=== PATIENT | female | born 1960 | race Caucasian/White ===

== ENCOUNTER 2018-12-28 09:08 | Inpatient (IN) | payer OTHER ==
[~2018-12-28] VITALS: Ht 157.5 cm; Wt 85.5 kg
[2018-12-28] VITALS (12 sets, daily range): BP systolic 11–121; BP diastolic 56–65; PULSE 84–102; RESP 19–20; Ht 157.5 cm; Wt 85.5 kg
[2018-12-28] MEDS ORDERED: ONDANSETRON 4 MG INJ IV STA (10:09)
[2018-12-28] MEDS ORDERED: SODIUM POLYSTYRENE 15 GM KIT (POWDER + SORBITOL) PO STA (10:37)
[2018-12-28] MEDS ORDERED: CA CHLORIDE 10% 10 ML SYRINGE IV STA (10:37)
[2018-12-28] MEDS ORDERED: ALBUTEROL 0.5% (NEB) 2.5 MG/0.5 ML AMP INH STA (10:37)
[2018-12-28] MEDS ORDERED: NA BICARBONATE 8.4% 50 ML SYG IV STA (10:37)
[2018-12-28] MEDS ORDERED: INSULIN REGULAR, HUMAN 100 UNIT/1 ML 3ML VIAL IVP STA (10:37)
[2018-12-28] MEDS ORDERED: ASPI-817 PO (10:42)
[2018-12-28] MEDS ORDERED: ACAR50TA PO ×2 (10:42→11:09)
[2018-12-28] MEDS ORDERED: AMLO-147 PO (10:42)
[2018-12-28] MEDS ORDERED: ATOR20TA38 PO (10:43)
[2018-12-28] MEDS ORDERED: ERGO500013 PO (10:44)
[2018-12-28] MEDS ORDERED: FAMO20TA18 PO (10:44)
[2018-12-28] MEDS ORDERED: FENO145T37 PO (10:45)
[2018-12-28] MEDS ORDERED: LANT3I SC (10:46)
[2018-12-28] MEDS ORDERED: MECL-77 PO (10:59)
[2018-12-28] MEDS ORDERED: CLON-379 PO (10:59)
[2018-12-28] MEDS ORDERED: DEXTROSE 50% 50 ML SYRINGE IV PRN ×3 (11:00→13:00)
[2018-12-28] MEDS ORDERED: ONDA8TAB9 PO (11:00)
[2018-12-28] MEDS ORDERED: RANI150T5 PO (11:00)
[2018-12-28] MEDS ORDERED: LEVO75TA5 PO (11:00)
[2018-12-28] MEDS ORDERED: ACETAMINOPHEN 325 MG TAB PO PRN (11:00)
[2018-12-28] MEDS ORDERED: ONDANSETRON 4 MG INJ IV PRN ×2 (11:00→11:30)
[2018-12-28] MEDS ORDERED: METF850T13 PO (11:01)
[2018-12-28] MEDS ORDERED: PRAV40TA76 PO (11:01)
[2018-12-28] MEDS ORDERED: ISOS30TA67 PO (11:02)
[2018-12-28] MEDS ORDERED: LOSA1TAB25 PO (11:03)
[2018-12-28] MEDS ORDERED: PANT40TA4 PO (11:03)
[2018-12-28] MEDS ORDERED: OXYB10TA6 PO (11:04)
[2018-12-28] MEDS ORDERED: BUDE6HFA INHALATION (11:05)
[2018-12-28] MEDS ORDERED: INSU100I12 SQ (11:05)
[2018-12-28] MEDS ORDERED: INSU200I4 SQ (11:06)
[2018-12-28] MEDS ORDERED: FOLI-49 PO (11:11)
[2018-12-28] MEDS ORDERED: METO-336 PO (11:14)
[2018-12-28] MEDS ORDERED: RANO500T2 PO (11:20)
[2018-12-28] MEDS ORDERED: SOD CHLORIDE 0.9% 1,000 ML IV SCH (11:30)
[2018-12-28] MEDS ORDERED: MECLIZINE 25 MG TAB PO PRN (11:30)
[2018-12-28] MEDS ORDERED: MECLIZINE 12.5 MG TAB PO PRN (11:30)
--- NOTE | 2018-12-28 11:31 | ERD ---
ER Documentation Chief Complaint Chief Complaint DIZZINESS AND VOMITING TODAY HPI Patient is a 58-year-old female who presents with hypertension, diabetes, and high cholesterol. The patient presented for vomiting and weakness. Her symptoms started on Thursday. She was admitted to [facility] last week. She had a stress test at that time which was negative. She reports chest pain and dizziness. She felt like her symptoms were worsening yesterday. Upon review of old medical records this is the patient's first visit to the emergency department. Her primary doctor is Dr. Brooks. ROS All systems reviewed and are negative except as per history of present illness. Medications Home Meds Reported Medications Ranolazine* (Ranexa*) 500 Mg Tab.sr.12h, 500 MG PO Q12, TAB 12/28/18 Metoprolol Succinate* (Toprol XL*) 100 Mg Tab.sr.24h, 100 MG PO BID, #30 TAB 12/28/18 Folic Acid* (Folic Acid*) 1 Mg Tablet, 1 MG PO DAILY, TAB 12/28/18 Acarbose* (Precose*) 50 Mg Tablet, 50 MG PO WITH MEALS, TAB 12/28/18 Insulin Degludec (Tresiba Flextouch U-200) 200 Unit/1 Ml Insuln.pen, 0 SQ QHS 50-100 UNITS NEEDED 12/28/18 Insulin Lispro (Humalog Kwikpen U-100) 100 Unit/1 Ml Insuln.pen, 16 UNIT SQ WITH MEALS, EA 12/28/18 Budesonide-Formoterol Fumarate* (Symbicort*) 160-4.5 Hfa.aer.ad, 2 PUFF INHALATION BID, #1 EACH 12/28/18 Oxybutynin Chloride* (Ditropan* XL) 10 Mg Tab.er.24, 10 MG PO DAILY, TAB.SA 12/28/18 Losartan-Hydrochlorothiazide (Losartan-HCTZ) 100-25 Mg Tab, 1 TAB PO DAILY, TAB 12/28/18 Pantoprazole* (Pantoprazole*) 40 Mg Tablet.dr, 40 MG PO AC BREAKFAST, TAB 12/28/18 Isosorbide Mononitrate* (Isosorbide Mononitrate*) 30 Mg Tab.er.24h, 30 MG PO DAILY, TAB 12/28/18 Pravastatin Sodium* (Pravastatin Sodium*) 40 Mg Tablet, 40 MG PO HS, TAB 12/28/18 Metformin Hcl* (Metformin Hcl*) 850 Mg Tablet, 850 MG PO WITH BREAKFAST DINNE, #60 TAB 12/28/18 Ondansetron Hcl* (Zofran*) 8 Mg Tablet, 8 MG PO Q12H PRN for NAUSEA AND OR VOMITING, TAB 12/28/18 Ranitidine Hcl* (Ranitidine Hcl*) 150 Mg Tablet, 150 MG PO HS, #30 TAB 12/28/18 Levothyroxine Sodium* (Levothyroxine Sodium*) 75 Mcg Tablet, 75 MCG PO BEFORE BREAKFAST, #30 TAB 12/28/18 Meclizine Hcl* (Meclizine Hcl*) 25 Mg Tablet, 25 MG PO BID PRN for DIZZINESS, TAB 12/28/18 Clonidine Hcl* (Clonidine Hcl*) 0.1 Mg Tab, 0.1 MG PO Q8 PRN for NEEDED, TAB 12/28/18 Fenofibrate Nanocrystallized* (Fenofibrate*) 145 Mg Tablet, 145 MG PO DAILY, TAB 12/28/18 Famotidine* (Famotidine*) 20 Mg Tablet, 20 MG PO DAILY, #30 TAB 12/28/18 Aspirin* (Aspirin* EC) 81 Mg Tablet.dr, 81 MG PO DAILY, TAB 12/28/18 Amlodipine Besylate* (Amlodipine Besylate*) 10 Mg Tablet, 10 MG PO DAILY, #30 TAB 12/28/18 Discontinued Reported Medications Insulin Glargine* (Lantus*) 100 Unit/Ml Soln, 12 UNIT SC DAILY, #1 VIAL 12/28/18 Ergocalciferol (Vitamin D2) (VITAMIN D2) 50,000 Unit Capsule, 36895 UNIT PO Q 14D, CAP 12/28/18 Atorvastatin Calcium* (Atorvastatin Calcium*) 20 Mg Tablet, 20 MG PO QHS, #30 TAB 12/28/18 Acarbose* (Precose*) 50 Mg Tablet, 50 MG PO WITH MEALS, TAB 12/28/18 Allergies Allergies: Coded Allergies: amoxicillin (Unverified Allergy, Unknown, 12/28/18) PMhx/Soc History of Surgery: Yes (hernia, gallbladder, eye surgeries) Hx Cardiac Disorders: Yes (hypertension; diabetes mellitus; hypercholesterolemia) Hx Miscellaneous Medical Probl: Yes Hx Alcohol Use: No Hx Substance Use: No Hx Tobacco Use: No Smoking Status: Never smoker FmHx Family History: diabetes Physical Exam Vitals Vital Signs Date Temp Pulse Resp B/P (MAP) Pulse Ox O2 O2 Flow FiO2 Time Delivery Rate 12/28/18 82 23 96 Nasal 2.0 11:01 Cannula 12/28/18 Nasal 3 09:40 Cannula 12/28/18 97.7 99 18 178/78 99 09:12 (111) Physical Exam Const: No acute distress Head: Atraumatic Eyes: Normal Conjunctiva ENT: Normal External Ears, Nose and Mouth. Neck: Full range of motion. No meningismus. Resp: Clear to auscultation bilaterally Cardio: Regular rate and rhythm, no murmurs Abd: Soft, non tender, non distended. Normal bowel sounds Skin: No petechiae or rashes Back: No midline or flank tenderness Ext: No cyanosis, or edema Neur: Awake and alert, cranial nerves II through XII are intact, strength is 5/5 in all 4 extremities Psych: Normal Mood and Affect Result Diagram: 12/28/18 0956 12/28/18 0956 Results 24 hrs Laboratory Tests Test 12/28/18 09:56 12/28/18 10:29 12/28/18 10:46 12/28/18 11:25 White Blood Count 7.0 10^3/ul Red Blood Count 3.83 10^6/ul Hemoglobin 12.0 g/dl Hematocrit 37.4 % Mean Corpuscular 97.7 fl Volume Mean Corpuscular 31.3 pg Hemoglobin Mean Corpuscular 32.1 g/dl Hemoglobin Concen t Red Cell 12.9 % Distribution Width Platelet Count 261 10^3/UL Mean Platelet 10.7 fl Volume Immature 0.900 % Granulocytes % Neutrophils % 80.5 % Lymphocytes % 15.6 % Monocytes % 2.7 % Eosinophils % 0.0 % Basophils % 0.3 % Nucleated Red 0.0 /100WBC Blood Cells % Immature 0.060 10^3/ul Granulocytes # Neutrophils # 5.6 10^3/ul Lymphocytes # 1.1 10^3/ul Monocytes # 0.2 10^3/ul Eosinophils # 0.0 10^3/ul Basophils # 0.0 10^3/ul Nucleated Red 0.0 10^3/ul Blood Cells # Prothrombin Time 15.2 Sec Prothrombin Time 1.2 Ratio INR International 1.19 Normalized Ratio Activated 29.2 Sec Partial Thrombopl ast Time Sodium Level 132 mmol/L Potassium Level 7.1 mmol/L Chloride Level 94 mmol/L Carbon Dioxide 12 mmol/L Level Anion Gap 26 Blood Urea 82 mg/dl Nitrogen Creatinine 11.03 mg/dl Est Glomerular 5 mL/min Filtrat Rate mL/min Glucose Level 283 mg/dl Bedside Glucose 269 mg/dL 250 mg/dL 329 mg/dL Calcium Level 10.0 mg/dl Troponin I 0.074 ng/ml Triglycerides 189 mg/dl Level Cholesterol Level 127 mg/dl LDL Cholesterol, 61 mg/dl Calculated HDL Cholesterol 28 mg/dl Cholesterol/HDL 4.5 RATIO Ratio Urine Color STRAW Urine Clarity CLEAR Urine pH 5.0 Urine Specific 1.007 [place] Urine Ketones 1+ mg/dL Urine Nitrite NEGATIVE mg/dL Urine Bilirubin NEGATIVE mg/dL Urine NEGATIVE mg/dL Urobilinogen Urine Leukocyte NEGATIVE Saritha/ul Esterase Urine Microscopic 1 /HPF RBC Urine Microscopic 2 /HPF WBC Urine Hemoglobin 1+ mg/dL Urine Glucose 3+ mg/dL Urine Total 1+ mg/dl Protein Urine Opiates NEGATIVE Screen Urine NEGATIVE Barbiturates Urine NEGATIVE Amphetamines Screen Urine NEGATIVE Benzodiazepines Screen Urine Cocaine NEGATIVE Screen Urine NEGATIVE Cannabinoids Current Medications Medications Dose Sig/Alexsander Start Time Status Last (Trade) Ordered Route PRN Stop Time Admin Dose Reason Admin Ondansetron 4 mg ONCE STAT 12/28/18 DC 12/28/18 HCl (Zofran IV 10:09 10:12 Inj) 12/28/18 10:10 Sodium 30 gm ONCE STAT 12/28/18 DC 12/28/18 Polystyrene PO 10:37 10:49 Sulfonate 12/28/18 10:38 (Kayexelate 15 Gm Kit (Powder+Sorbi nash)) Albuterol 15 mg ONCE STAT 12/28/18 DC 12/28/18 (Proventil INH 10:37 11:01 0.5% (Neb)) 12/28/18 10:38 Sodium 50 ml ONCE STAT 12/28/18 DC 12/28/18 Bicarbonate IV 10:37 10:50 (Na Bicarb 12/28/18 10:38 8.4% Syg) Calcium 1,000 mg ONCE STAT 12/28/18 DC 12/28/18 Chloride IV 10:37 10:48 (Ca Chloride 12/28/18 10:38 10% Syg) Insulin 10 unit ONCE STAT 12/28/18 DC 12/28/18 Human IVP 10:37 10:48 Regular 12/28/18 10:38 (Humulin R) Dextrose ONCE PRN 12/28/18 12/28/18 (D50w IV DECREASED 11:00 10:49 Syringe) GLUCOSE Ondansetron 4 mg ER BRIDGE 12/28/18 HCl (Zofran PRN IV 11:00 Inj) NAUSEA/VOMITI 12/29/18 10:59 NG 650 mg ER BRIDGE 12/28/18 DC Acetaminophen PRN PO 11:00 (Tylenol .MILD PAIN 12/28/18 11:17 Tab) 1-3 OR TEMP Sodium 1,000 ml @ Q8H IV 12/28/18 Chloride 125 mls/hr 11:30 650 mg Q4H PRN 12/28/18 Acetaminophen PO pain 11:30 (Tylenol Tab) Meclizine 25 mg Q6H PRN 12/28/18 HCl PO vertigo 11:30 (Antivert) Zolpidem 5 mg HS MAY 12/28/18 Tartrate REPEAT X 1 21:00 (Ambien) PRN PO INSOMNIA Acarbose 50 mg WITH MEALS 12/28/18 UNV (Precose) PO 12:00 Amlodipine 10 mg DAILY PO 12/28/18 UNV Besylate 11:30 (Norvasc) Aspirin 81 mg DAILY PO 12/28/18 UNV (Halfprin) 11:30 Clonidine 0.1 mg Q8 PRN PO 12/28/18 UNV (Catapres) NEEDED 11:30 Famotidine 20 mg DAILY PO 12/28/18 UNV (Pepcid) 11:30 Fenofibrate 145 mg DAILY PO 12/28/18 UNV (Tricor) 11:30 Isosorbide 30 mg DAILY PO 12/28/18 UNV Mononitrate 11:30 (Imdur) 75 mcg BEFORE 12/29/18 UNV Levothyroxine BREAKFAST 07:00 Sodium PO (Synthroid) Meclizine 25 mg BID PRN 12/28/18 UNV HCl PO DIZZINESS 11:30 (Antivert) Metoprolol 100 mg BID PO 12/28/18 UNV Succinate 11:30 (Toprol Xl) Oxybutynin 10 mg DAILY PO 12/28/18 UNV Chloride 11:30 (Ditropan Xl) 16 unit WITH MEALS 12/28/18 UNV Miscellaneous SQ 12:00 Information 40 mg HS PO 12/28/18 UNV Miscellaneous 21:00 Information Procedures/MDM EKG read by me: Rate/Rhythm: Incomplete bundle branch block and a normal rate Intervals: Normal Impression: Incomplete bundle branch block CT head read by radiology. Chest x-ray read by radiology. Patient is a 58-year-old female who presents with vomiting and weakness. She was found to have acute renal failure with a BUN of 80 and a creatinine of 11. She was hyperkalemic at 7.1 which is life-threatening. She was acidotic with a bicarb of 12. She was uremic. She was given treatment for hyperkalemia inc luding calcium, bicarb, albuterol, insulin, glucose, and Kayexalate. The patient will likely need acute dialysis. She has never had dialysis before. I spoke with Dr. Viveros for admission to a telemetry bed as the patient has regal insurance. She is unstable for transfer. The patient will be admitted to an inpatient telemetry bed. Critical Care: Time: 35 minutes excluding all billable procedures. Treatments/Evaluations: Close monitoring and treatment of unstable vital signs, cardiorespiratory, and neurologic status, while maintaining tight balance of fluid, respiratory, and cardiac interventions. Departure Diagnosis: Primary Impression: Hyperkalemia Additional Impressions: ARF (acute renal failure) Acute renal failure type: unspecified Qualified Codes: N17.9 - Acute kidney failure, unspecified Acidosis Vertigo Uremia Condition: Serious RADHA QUISPE MD Dec 28, 2018 11:31
[2018-12-28] MEDS ORDERED: morphine 4 MG/ML VIAL IV STA (11:33)
[2018-12-28] MEDS ORDERED: GLUCOSE GEL 15 GRAM TUBE BUCCAL PRN (13:00)
[2018-12-28] MEDS ORDERED: GLUCAGON 1 MG INJ IM PRN (13:00)
[2018-12-28] MEDS ORDERED: GLUCOSE GEL 15 GRAM TUBE PO PRN ×2 (13:00)
[2018-12-28] MEDS: ISOSORBIDE MONONITRATE(SR)30 MG TAB PO SCH (13:25)
[2018-12-28] MEDS: ASPIRIN (EC) 81 MG TAB PO SCH (13:32)
[2018-12-28] MEDS: INSULIN ASPART [NOVOLOG] 3 ML PEN SC SCH ×4 (13:32→21:24)
[2018-12-28] MEDS: FAMOTIDINE 20 MG TAB PO SCH (13:32)
[2018-12-28] MEDS: OXYBUTYNIN (XL) 5 MG TAB PO SCH (13:33)
[2018-12-28] MEDS: METOPROLOL (XL) 100 MG TAB PO SCH ×2 (13:33→20:49)
[2018-12-28] MEDS: FENOFIBRATE 145 MG TAB PO SCH (13:34)
[2018-12-28] MEDS: AMLODIPINE 10 MG TAB PO SCH (14:27)
--- NOTE | 2018-12-28 14:36 | HP ---
DATE OF ADMISSION: 12/28/2018 CHIEF COMPLAINT: Dizziness. HISTORY OF PRESENT ILLNESS: A 58-year-old female with a history of hypertension, type 2 diabetes amanda litus and hypothyroidism, who presented to emergency room with complaint of dizziness associated with nausea and vomiting for several days. The patient denies any focal weakness or numbness. No abdomi nal pain. No chest pain or shortness of breath. The patient had chest pain about 1 week prior to ad mission. She was evaluated at [facility]. She underwent Lexiscan stress test with no evidence of coronary ischemia. Initial evaluation in the emergency room revealed a potassium of 7.1, BUN of 82 and creatinine of 11. We do not have a baseline creatinine available. Her daughter was not aware of any history of renal insufficiency. PAST MEDICAL HISTORY: 1. Hypertension. 2. Hyperlipidemia. 3. Type 2 diabetes mellitus. 4. Hyperthyroidism. MEDICATIONS PRIOR TO ADMISSION: 1. Amlodipine 10 mg daily. 2. Clonidine 0.1 mg every 8 hours as needed. 3. Fenofibrate 145 mg daily. 4. Isosorbide 30 mg daily. 5. Losartan and hydrochlorothiazide 100/25 once daily. 6. Pravastatin 40 mg at bedtime. 7. Aspirin 81 mg daily. 8. Pepcid 20 mg daily. 9. Protonix 40 mg daily. 10. Ranitidine 150 mg at bedtime. 11. Acarbose 50 mg with meals. 12. Insulin degludec 200 units as needed. 13. Insulin Lispro 16 units with each meal. 14. Levothyroxine 75 mcg daily. 15. Metformin 850 mg b.i.d. 16. Ditropan XL 10 mg daily. SOCIAL HISTORY: The patient lives at home. She denies tobacco or alcohol use. PHYSICAL EXAMINATION: GENERAL: Well-developed, well-nourished female who is in no apparent distress. VITAL SIGNS: Blood pressure 160/75, respiration 18, pulse 90, temperature 97.7. HEENT: Extraocular muscles are intact. Pupils are equal and reactive to light bilaterally. Sclerae are anicteric. Oropharynx is clear and moist. NECK: Supple. No JVD, no carotid bruits. LUNGS: Clear to auscultation bilaterally. CARDIAC: Regular rate and rhythm. No murmurs or gallops. ABDOMEN: Soft, nontender, nondistended, normoactive bowel sounds. EXTREMITIES: No clubbing, cyanosis or edema. NEUROLOGICAL: Mild horizontal nystagmus. No focal weakness or numbness. LABORATORY DATA: Sodium 132, potassium 7.1, chloride 94, bicarbonate 12, BUN 82, creatinine 11. Blo od sugar is 250. WBC 7, hemoglobin 12, platelet count is 261. Urinalysis shows 3+ glucose. ASSESSMENT: 1. A 58-year-old female presenting with vertigo. 2. Acute kidney injury. Baseline renal function is not available at this time. 3. Hyperkalemia. 4. Hypertension. 5. Type 2 diabetes mellitus. 6. Hypothyroidism. PLAN: 1. Admit to telemetry. IV fluid normal saline at 125 mL an hour. Monitor potassium closely. 2. Resume selective home medications. 3. Kayexalate. 4. Nephrology consultation was requested. Dictated By: LUCIANA RIOS/NTS Conf#: [id number] DID#: [id number] CC: ANABELLE GARCIA MD; RADHA QUISPE MD;*EndCC*
--- NOTE | 2018-12-28 14:43 | CONS ---
Assessment/Plan Assessment/Plan Assessment/Plan (Daily) 1. Acute kidney injury on CKD III due to severe prerenal azotemia 2. severe metabolic acidosis with HCO3 9, PH 7.1 3. Acute hyperkalemia with K 7.1 on admission due to NOAH 4. 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 Anemia of CKD III 6. Moderate to severe dehydration 7/ h/o HTN 8/ H/.o HL Plan: seen in ED, initially pt received mulitple treatments of Hyperkalemia, K imporved from 7.1 to 5.3 then again back up to 6.1- pt is severely acidotic with HCo3 9, PH 7.1- will request vascualr surgery to place sony catheter and plan is to do Temporary HD for 2 hr today and 3 hr tomorrow will order Urine labs including Urine Na, urine protein?Cr ration , urine eosinophils, CK total, URic acid Renal US done on 12/28/18 showed The kidneys are normal in size, contour, cortical thickness and cortical echogenicity. The right kidney measures 10.1 cm. The left kidney measures 11.8 cm. no ACEIARB due to Noah and acute hyperkalemia IV hydralazine prn Thanks for ocfrancisulttegan I will continue to follow up Consultation Date/Type/Reason Admit Date/Time 12/28/2018 Date of Consultation: Dec 28, 2018 Type of Consult NEPHROLOGY Reason for Consultation acute hyperkalemia, Acute kidney injury on CKD III with Uremia and Uremic encephalopathy Requesting Provider: LUCIANA MUHAMMAD MD Date/Time of Note DATE: 12/28/18 TIME: 14:43 Hx of Present Illness 58-year-old female with a history of hypertension, type 2 diabetes mellitus and hypothyroidism, CKD III due to DM nephropathy with baseline Cr around 1.5-1.6 , who presented to emergency room with complaint of dizziness associated with nausea and vomiting for several days. The patient denies any focal weakness or numbness. No abdominal pain. No chest pain or shortness of breath. The patient had chest pain about 1 week prior to admission. She was evaluated at [facility] on 12/23/18 - pt had a Cr of 1.45 with eGFR 45 which would be her baseline CKD III stage. She underwent Lexiscan stress test with no evidence of coronary ischemia and discharged home pt presented to [facility] with dizziness, nause, vomiting - Noted to have K 7.1, HCO3 9, BUN/Cr 82/11.03-ABG showed PH 7.1- Renal has been consulted for acute hyperkalemia, severe uremia, acute on chronic renal failure and severe metabolic acidosis. Constitutional: poor po Eyes: no complaints ENT: dysphagia Respiratory: pain, shortness of breath Cardiovascular: no complaints, chest pain Gastrointestinal: nausea, vomiting Genitourinary: no complaints Musculoskeletal: no complaints Skin: no complaints Neurologic: no complaints Endocrine: no complaints Lymphatic: no complaints Psychological: no complaints Immunologic: no complaints Past Medical History Medical History: diabetes, hypertension, hypothyroid, other (CKD III with ba seline Cr 1.5-1.6) Home Meds Reported Medications Ranolazine* (Ranexa*) 500 Mg Tab.sr.12h, 500 MG PO Q12, TAB 12/28/18 Metoprolol Succinate* (Toprol XL*) 100 Mg Tab.sr.24h, 100 MG PO BID, #30 TAB 12/28/18 Folic Acid* (Folic Acid*) 1 Mg Tablet, 1 MG PO DAILY, TAB 12/28/18 Acarbose* (Precose*) 50 Mg Tablet, 50 MG PO WITH MEALS, TAB 12/28/18 Insulin Degludec (Tresiba Flextouch U-200) 200 Unit/1 Ml Insuln.pen, 0 SQ QHS 50-100 UNITS NEEDED 12/28/18 Insulin Lispro (Humalog Kwikpen U-100) 100 Unit/1 Ml Insuln.pen, 16 UNIT SQ WITH MEALS, EA 12/28/18 Budesonide-Formoterol Fumarate* (Symbicort*) 160-4.5 Hfa.aer.ad, 2 PUFF INHALATION BID, #1 EACH 12/28/18 Oxybutynin Chloride* (Ditropan* XL) 10 Mg Tab.er.24, 10 MG PO DAILY, TAB.SA 12/28/18 Losartan-Hydrochlorothiazide (Losartan-HCTZ) 100-25 Mg Tab, 1 TAB PO DAILY, TAB 12/28/18 Pantoprazole* (Pantoprazole*) 40 Mg Tablet.dr, 40 MG PO AC BREAKFAST, TAB 12/28/18 Isosorbide Mononitrate* (Isosorbide Mononitrate*) 30 Mg Tab.er.24h, 30 MG PO DAILY, TAB 12/28/18 Pravastatin Sodium* (Pravastatin Sodium*) 40 Mg Tablet, 40 MG PO HS, TAB 12/28/18 Metformin Hcl* (Metformin Hcl*) 850 Mg Tablet, 850 MG PO WITH BREAKFAST DINNE, #60 TAB 12/28/18 Ondansetron Hcl* (Zofran*) 8 Mg Tablet, 8 MG PO Q12H PRN for NAUSEA AND OR VOMITING, TAB 12/28/18 Ranitidine Hcl* (Ranitidine Hcl*) 150 Mg Tablet, 150 MG PO HS, #30 TAB 12/28/18 Levothyroxine Sodium* (Levothyroxine Sodium*) 75 Mcg Tablet, 75 MCG PO BEFORE BREAKFAST, #30 TAB 12/28/18 Meclizine Hcl* (Meclizine Hcl*) 25 Mg Tablet, 25 MG PO BID PRN for DIZZINESS, TAB 12/28/18 Clonidine Hcl* (Clonidine Hcl*) 0.1 Mg Tab, 0.1 MG PO Q8 PRN for NEEDED, TAB 12/28/18 Fenofibrate Nanocrystallized* (Fenofibrate*) 145 Mg Tablet, 145 MG PO DAILY, TAB 12/28/18 Famotidine* (Famotidine*) 20 Mg Tablet, 20 MG PO DAILY, #30 TAB 12/28/18 Aspirin* (Aspirin* EC) 81 Mg Tablet.dr, 81 MG PO DAILY, TAB 12/28/18 Amlodipine Besylate* (Amlodipine Besylate*) 10 Mg Tablet, 10 MG PO DAILY, #30 TAB 12/28/18 Discontinued Reported Medications Insulin Glargine* (Lantus*) 100 Unit/Ml Soln, 12 UNIT SC DAILY, #1 VIAL 12/28/18 Ergocalciferol (Vitamin D2) (VITAMIN D2) 50,000 Unit Capsule, 88070 UNIT PO Q 14D, CAP 12/28/18 Atorvastatin Calcium* (Atorvastatin Calcium*) 20 Mg Tablet, 20 MG PO QHS, #30 TAB 12/28/18 Acarbose* (Precose*) 50 Mg Tablet, 50 MG PO WITH MEALS, TAB 12/28/18 Medications Current Medications Dextrose (D50w Syringe) ONCE PRN IV DECREASED GLUCOSE Last administered on 12/28/18at 10:49; Admin Dose 50 ML; Start 12/28/18 at 11:00 Ondansetron HCl (Zofran Inj) 4 mg ER BRIDGE PRN IV NAUSEA/VOMITING; Start 12/28/18 at 11:00; Stop 12/29/18 at 10:59 Acetaminophen (Tylenol Tab) 650 mg Q4H PRN PO pain; Start 12/28/18 at 11:30 Meclizine HCl (Antivert) 25 mg Q6H PRN PO vertigo; Start 12/28/18 at 11:30 Zolpidem Tartrate (Ambien) 5 mg HS MAY REPEAT X 1 PRN PO INSOMNIA; Start 12/28/18 at 21:00 Acarbose (Precose) 50 mg WITH MEALS PO ; Start 12/28/18 at 18:00 Amlodipine Besylate (Norvasc) 10 mg DAILY PO ; Start 12/28/18 at 13:00 Aspirin (Halfprin) 81 mg DAILY PO Last administered on 12/28/18at 13:32; Admin Dose 81 MG; Start 12/28/18 at 13:00 Clonidine (Catapres) 0.1 mg Q8H PRN PO ELEVATED BLOOD PRESSURE; Start 12/28/18 at 11:30 Famotidine (Pepcid) 20 mg DAILY PO Last administered on 12/28/18at 13:32; Admin Dose 20 MG; Start 12/28/18 at 13:00 Fenofibrate (Tricor) 145 mg DAILY PO Last administered on 12/28/18at 13:34; Ad min Dose 145 MG; Start 12/28/18 at 13:00 Isosorbide Mononitrate (Imdur) 30 mg DAILY PO Last administered on 12/28/18at 13:25; Admin Dose 30 MG; Start 12/28/18 at 13:00 Levothyroxine Sodium (Synthroid) 75 mcg BEFORE BREAKFAST PO ; Start 12/29/18 at 07:00 Meclizine HCl (Antivert) 25 mg BID PRN PO DIZZINESS; Start 12/28/18 at 11:30 Metoprolol Succinate (Toprol Xl) 100 mg BID PO Last administered on 12/28/18at 13:33; Admin Dose 100 MG; Start 12/28/18 at 13:00 Oxybutynin Chloride (Ditropan Xl) 10 mg DAILY PO Last administered on 12/28/18at 13:33; Admin Dose 10 MG; Start 12/28/18 at 13:00 Insulin Aspart (Novolog Insulin Pen) 16 unit WITH MEALS SC ; Start 12/28/18 at 18:00 Atorvastatin Calcium (Lipitor) 10 mg DAILY@21 PO ; Start 12/28/18 at 21:00 Insulin Aspart (Novolog Insulin Pen) NOVOLOG *MODERATE* ALGORITHM WITH MEALS BEDTIME SC Last administered on 12/28/18at 13:32; Admin Dose 8 UNIT; Start 12/28/18 at 12:00 Ondansetron HCl (Zofran Inj) 4 mg Q4H PRN IV nausea; Start 12/28/18 at 11:30 Miscellaneous Information 1 ea NOTE XX ; Start 12/28/18 at 13:00 Glucose (Glutose) 15 gm Q15M PRN PO DECREASED GLUCOSE; Start 12/28/18 at 13:00 Glucose (Glutose) 22.5 gm Q15M PRN PO DECREASED GLUCOSE; Start 12/28/18 at 13:00 Dextrose (D50w Syringe) 25 ml Q15M PRN IV DECREASED GLUCOSE; Start 12/28/18 at 13:00 Dextrose (D50w Syringe) 50 ml Q15M PRN IV DECREASED GLUCOSE; Start 12/28/18 at 13:00 Glucagon (Glucagen) 1 mg Q15M PRN IM DECREASED GLUCOSE; Start 12/28/18 at 13:00 Glucose (Glutose) 15 gm Q15M PRN BUCCAL DECREASED GLUCOSE; Start 12/28/18 at 13:00 Heparin Sodium (Porcine) (Heparin (1000 Units/ml)) 4,000 unit AFTER DIALYSIS CATHETER ; Start 12/28/18 at 15:00; Status UNV Albumin Human 100 ml @ 100 mls/hr WITH DIALYSIS PRN IV SBP <90 DURING DIALYSIS; Start 12/28/18 at 15:00; Status UNV Sodium Chloride (NS) -To prime the dialy... DIRECTED FOR HD PRN IV HD; Start 12/28/18 at 15:00; Status UNV Sodium Bicarbonate 100 meq/Sodium Chloride 1,100 ml @ 100 mls/hr Q11H IV ; S tart 12/28/18 at 15:00; Status UNV Allergies: Coded Allergies: amoxicillin (Unverified Allergy, Unknown, 12/28/18) Past Surgical History Past Surgical Hx: other (hernia repair, Gall bladder surgery and Eye surgery ) Family History Significant Family History: no pertinent family hx Social History Alcohol Use: none Smoking Status: Never smoker Drug Use: none Exam/Review of Systems Exam Vitals Vital Signs Date Temp Pulse Resp B/P (MAP) Pulse Ox O2 O2 Flow FiO2 Time Delivery Rate 12/28/18 98.0 114 24 119/52 95 Room Air 14:00 (74) 12/28/18 2.0 13:00 Constitutional: distress (moderate to severe ) Head: normocephalic Eyes: nl conjunctiva ENMT: nl external ears & nose Neck: supple, non-tender Respiratory: congested cough, crackles/rales Cardiovascular: regular rate and rhythm, nl pulses Gastrointestinal: soft, non-tender Musculoskeletal: muscle weakness, swelling Extremities: normal pulses Neurological: lethargic, other (awake alert but falling back to sleep ) Skin: nl turgor Lymph: nl lymph nodes Results Result Diagram: 12/28/18 0956 12/28/18 1218 Results 24hrs Laboratory Tests Test 12/28/18 09:56 12/28/18 10:29 12/28/18 10:46 12/28/18 11:25 White Blood Count 7.0 Red Blood Count 3.83 L Hemoglobin 12.0 L Hematocrit 37.4 L Mean Corpuscular 97.7 Volume Mean Corpuscular 31.3 Hemoglobin Mean Corpuscular 32.1 Hemoglobin Concen t Red Cell 12.9 Distribution Width Platelet Count 261 Mean Platelet 10.7 H Volume Immature 0.900 H Granulocytes % Neutrophils % 80.5 H Lymphocytes % 15.6 Monocytes % 2.7 Eosinophils % 0.0 Basophils % 0.3 Nucleated Red 0.0 Blood Cells % Immature 0.060 H Granulocytes # Neutrophils # 5.6 Lymphocytes # 1.1 Monocytes # 0.2 L Eosinophils # 0.0 Basophils # 0.0 Nucleated Red 0.0 Blood Cells # Prothrombin Time 15.2 H Prothrombin Time 1.2 Ratio INR International 1.19 Normalized Ratio Activated 29.2 Partial Thrombopl ast Time Sodium Level 132 L Potassium Level 7.1 *H Chloride Level 94 L Carbon Dioxide 12 L Level Anion Gap 26 H Blood Urea 82 H Nitrogen Creatinine 11.03 H Est Glomerular 5 L Filtrat Rate mL/min Glucose Level 283 H Bedside Glucose 269 H 250 H 329 H Hemoglobin A1c 8.1 H Calcium Level 10.0 Troponin I 0.074 Triglycerides 189 H Level Cholesterol Level 127 LDL Cholesterol, 61 Calculated HDL Cholesterol 28 L Cholesterol/HDL 4.5 Ratio Urine Color STRAW Urine Clarity CLEAR Urine pH 5.0 Urine Specific 1.007 [place] Urine Ketones 1+ H Urine Nitrite NEGATIVE Urine Bilirubin NEGATIVE Urine NEGATIVE Urobilinogen Urine Leukocyte NEGATIVE Esterase Urine Microscopic 1 RBC Urine Microscopic 2 WBC Urine Hemoglobin 1+ H Urine Glucose 3+ H Urine Total 1+ H Protein Urine Opiates NEGATIVE Screen Urine NEGATIVE Barbiturates Urine NEGATIVE Amphetamines Screen Urine NEGATIVE Benzodiazepines Screen Urine Cocaine NEGATIVE Screen Urine NEGATIVE Cannabinoids Test 12/28/18 12:12 12/28/18 12:18 12/28/18 13:21 Blood Gas Blood arterial Specimen Source Arterial Blood 12/28/2018 12:22: Date Drawn 22 PM Arterial Blood pH 7.103 *L (Temp corrected) Arterial Blood 31.8 L pCO2 (Temp correct) Arterial Blood 88.8 pO2 (Temp corrected) Arterial Blood 9.7 *L HCO3 Arterial Blood -18.7 L Base Excess Arterial Blood 94.6 L Oxygen Saturation Del Test ACCEPTAB Arterial Blood Right Radial Gas Puncture Site Arterial 0.3 Blood Carboxyhemo globin Arterial Blood 0.5 Methemoglobin Blood Gas A-a O2 22.9 Differential Oxyhemoglobin 93.8 Percent Blood Gas 37.0 Temperature Blood Gas ROOM AIR Modality FiO2 21.[address] GARCIA Critical Value Read Back Blood Gas RT Notified Whom Blood Gas 12/28/2018 12:33: Notified Time 43 PM Sodium Level 135 Potassium Level 5.3 H Chloride Level 96 L Carbon Dioxide 9 *L Level Anion Gap 30 H Blood Urea 83 H Nitrogen Creatinine 11.25 H Est Glomerular 3 L Filtrat Rate mL/min Glucose Level 304 H Calcium Level 10.4 H Bedside Glucose 263 H Medications Medication Current Medications Dextrose (D50w Syringe) ONCE PRN IV DECREASED GLUCOSE Last administered on 12/28/18at 10:49; Admin Dose 50 ML; Start 12/28/18 at 11:00 Ondansetron HCl (Zofran Inj) 4 mg ER BRIDGE PRN IV NAUSEA/VOMITING; Start 12/28/18 at 11:00; Stop 12/29/18 at 10:59 Acetaminophen (Tylenol Tab) 650 mg Q4H PRN PO pain; Start 12/28/18 at 11:30 Meclizine HCl (Antivert) 25 mg Q6H PRN PO vertigo; Start 12/28/18 at 11:30 Zolpidem Tartrate (Ambien) 5 mg HS MAY REPEAT X 1 PRN PO INSOMNIA; Start 12/28/18 at 21:00 Acarbose (Precose) 50 mg WITH MEALS PO ; Start 12/28/18 at 18:00 Amlodipine Besylate (Norvasc) 10 mg DAILY PO ; Start 12/28/18 at 13:00 Aspirin (Halfprin) 81 mg DAILY PO Last administered on 12/28/18at 13:32; Admin Dose 81 MG; Start 12/28/18 at 13:00 Clonidine (Catapres) 0.1 mg Q8H PRN PO ELEVATED BLOOD PRESSURE; Start 12/28/18 at 11:30 Famotidine (Pepcid) 20 mg DAILY PO Last administered on 12/28/18at 13:32; Admin Dose 20 MG; Start 12/28/18 at 13:00 Fenofibrate (Tricor) 145 mg DAILY PO Last administered on 12/28/18at 13:34; Admin Dose 145 MG; Start 12/28/18 at 13:00 Isosorbide Mononitrate (Imdur) 30 mg DAILY PO Last administered on 12/28/18at 13:25; Admin Dose 30 MG; Start 12/28/18 at 13:00 Levothyroxine Sodium (Synthroid) 75 mcg BEFORE BREAKFAST PO ; Start 12/29/18 at 07:00 Meclizine HCl (Antivert) 25 mg BID PRN PO DIZZINESS; Start 12/28/18 at 11:30 Metoprolol Succinate (Toprol Xl) 100 mg BID PO Last administered on 12/28/18at 13:33; Admin Dose 100 MG; Start 12/28/18 at 13:00 Oxybutynin Chloride (Ditropan Xl) 10 mg DAILY PO Last administered on 12/28/18at 13:33; Admin Dose 10 MG; Start 12/28/18 at 13:00 Insulin Aspart (Novolog Insulin Pen) 16 unit WITH MEALS SC ; Start 12/28/18 at 18:00 Atorvastatin Calcium (Lipitor) 10 mg DAILY@21 PO ; Start 12/28/18 at 21:00 Insulin Aspart (Novolog Insulin Pen) NOVOLOG *MODERATE* ALGORITHM WITH MEALS BEDTIME SC Last administered on 12/28/18at 13:32; Admin Dose 8 UNIT; Start 12/28/18 at 12:00 Ondansetron HCl (Zofran Inj) 4 mg Q4H PRN IV nausea; Start 12/28/18 at 11:30 Miscellaneous Information 1 ea NOTE XX ; Start 12/28/18 at 13:00 Glucose (Glutose) 15 gm Q15M PRN PO DECREASED GLUCOSE; Start 12/28/18 at 13:00 Glucose (Glutose) 22.5 gm Q15M PRN PO DECREASED GLUCOSE; Start 12/28/18 at 13:00 Dextrose (D50w Syringe) 25 ml Q15M PRN IV DECREASED GLUCOSE; Start 12/28/18 at 13:00 Dextrose (D50w Syringe) 50 ml Q15M PRN IV DECREASED GLUCOSE; Start 12/28/18 at 13:00 Glucagon (Glucagen) 1 mg Q15M PRN IM DECREASED GLUCOSE; Start 12/28/18 at 13:00 Glucose (Glutose) 15 gm Q15M PRN BUCCAL DECREASED GLUCOSE; Start 12/28/18 at 13:00 Heparin Sodium (Porcine) (Heparin (1000 Units/ml)) 4,000 unit AFTER DIALYSIS CATHETER ; Start 12/28/18 at 15:00; Status UNV Albumin Human 100 ml @ 100 mls/hr WITH DIALYSIS PRN IV SBP <90 DURING DIALYSIS; Start 12/28/18 at 15:00; Status UNV Sodium Chloride (NS) -To prime the dialy... DIRECTED FOR HD PRN IV HD; Start 12/28/18 at 15:00; Status UNV Sodium Bicarbonate 100 meq/Sodium Chloride 1,100 ml @ 100 mls/hr Q11H IV ; Start 12/28/18 at 15:00; Status UNV ANABELLE GARCIA MD Dec 28, 2018 14:43
[2018-12-28] MEDS ORDERED: FENTAnyl 50 MCG/ML VIAL ONE (14:46)
[2018-12-28] MEDS ORDERED: MIDAZOLAM 1 MG/ML 2 ML INJ ONE (14:46)
[2018-12-28] MEDS ORDERED: HEPARIN 1000 UNITS/ML 10 ML INJ ONE (14:46)
[2018-12-28] MEDS ORDERED: HEPARIN 1000 UNITS/NS (A-LINE) 1,000 ML ONE (14:46)
[2018-12-28] MEDS ORDERED: LIDOCAINE 1% (MDV) 20 ML INJ ONE (14:46)
[2018-12-28] MEDS ORDERED: SODIUM CHLORIDE 0.9% 1L BAG IV PRN (15:00)
[2018-12-28] MEDS ORDERED: HEPARIN 1000 UNITS/ML 10 ML INJ CATHETER SCH (15:00)
[2018-12-28] MEDS ORDERED: ALBUMIN HUMAN 25% 100 ML IV PRN (15:00)
--- NOTE | 2018-12-28 15:02 | CONS ---
Assessment/Plan Assessment/Plan Assessment/Plan (Daily) 58F w/ acute on chronic renal failure, needs urgent HD access Plan: -Will plan for temporary dialysis catheter placement for HD initiation, Dr Garcia had d/w pt and family who agreed to proceed -D/w Dr. Garcia Consultation Date/Type/Reason Admit Date/Time Date of Consultation: Dec 28, 2018 Type of Consult ARF Reason for Consultation Urgent HD access Requesting Provider: ANABELLE GARCIA MD Date/Time of Note DATE: 12/28/18 TIME: 15:01 Hx of Present Illness 58-year-old female with hypertension, type 2 diabetes, hypothyroidism, CKD III, who presented with complaint of dizziness with n and v for several days found to be in acute renal failure and noted to have hyperkalemia w/ K 7.1 s/p medical treatment w/ improvement. She is also acidotic and tachycardic. She now needs urgent dialysis access of HD initiation. Per her daughter, Maribeth, she denies any focal weakness or numbness, CP, SOB, abdominal pain. 14-point ROS performed, negative except for HPI Past Medical History as per HPI Home Meds Reported Medications Ranolazine* (Ranexa*) 500 Mg Tab.sr.12h, 500 MG PO Q12, TAB 12/28/18 Metoprolol Succinate* (Toprol XL*) 100 Mg Tab.sr.24h, 100 MG PO BID, #30 TAB 12/28/18 Folic Acid* (Folic Acid*) 1 Mg Tablet, 1 MG PO DAILY, TAB 12/28/18 Acarbose* (Precose*) 50 Mg Tablet, 50 MG PO WITH MEALS, TAB 12/28/18 Insulin Degludec (Tresiba Flextouch U-200) 200 Unit/1 Ml Insuln.pen, 0 SQ QHS 50-100 UNITS NEEDED 12/28/18 Insulin Lispro (Humalog Kwikpen U-100) 100 Unit/1 Ml Insuln.pen, 16 UNIT SQ WITH MEALS, EA 12/28/18 Budesonide-Formoterol Fumarate* (Symbicort*) 160-4.5 Hfa.aer.ad, 2 PUFF INHALATION BID, #1 EACH 12/28/18 Oxybutynin Chloride* (Ditropan* XL) 10 Mg Tab.er.24, 10 MG PO DAILY, TAB.SA 12/28/18 Losartan-Hydrochlorothiazide (Losartan-HCTZ) 100-25 Mg Tab, 1 TAB PO DAILY, TAB 12/28/18 Pantoprazole* (Pantoprazole*) 40 Mg Tablet.dr, 40 MG PO AC BREAKFAST, TAB 12/28/18 Isosorbide Mononitrate* (Isosorbide Mononitrate*) 30 Mg Tab.er.24h, 30 MG PO DAILY, TAB 12/28/18 Pravastatin Sodium* (Pravastatin Sodium*) 40 Mg Tablet, 40 MG PO HS, TAB 12/28/18 Metformin Hcl* (Metformin Hcl*) 850 Mg Tablet, 850 MG PO WITH BREAKFAST DINNE, #60 TAB 12/28/18 Ondansetron Hcl* (Zofran*) 8 Mg Tablet, 8 MG PO Q12H PRN for NAUSEA AND OR VOMITING, TAB 12/28/18 Ranitidine Hcl* (Ranitidine Hcl*) 150 Mg Tablet, 150 MG PO HS, #30 TAB 12/28/18 Levothyroxine Sodium* (Levothyroxine Sodium*) 75 Mcg Tablet, 75 MCG PO BEFORE BREAKFAST, #30 TAB 12/28/18 Meclizine Hcl* (Meclizine Hcl*) 25 Mg Tablet, 25 MG PO BID PRN for DIZZINESS, TAB 12/28/18 Clonidine Hcl* (Clonidine Hcl*) 0.1 Mg Tab, 0.1 MG PO Q8 PRN for NEEDED, TAB 12/28/18 Fenofibrate Nanocrystallized* (Fenofibrate*) 145 Mg Tablet, 145 MG PO DAILY, TAB 12/28/18 Famotidine* (Famotidine*) 20 Mg Tablet, 20 MG PO DAILY, #30 TAB 12/28/18 Aspirin* (Aspirin* EC) 81 Mg Tablet.dr, 81 MG PO DAILY, TAB 12/28/18 Amlodipine Besylate* (Amlodipine Besylate*) 10 Mg Tablet, 10 MG PO DAILY, #30 TAB 12/28/18 Discontinued Reported Medications Insulin Glargine* (Lantus*) 100 Unit/Ml Soln, 12 UNIT SC DAILY, #1 VIAL 12/28/18 Ergocalciferol (Vitamin D2) (VITAMIN D2) 50,000 Unit Capsule, 70247 UNIT PO Q 14D, CAP 6/11/19 Atorvastatin Calcium* (Atorvastatin Calcium*) 20 Mg Tablet, 20 MG PO QHS, #30 TAB 12/28/18 Acarbose* (Precose*) 50 Mg Tablet, 50 MG PO WITH MEALS, TAB 12/28/18 Medications Current Medications Dextrose (D50w Syringe) ONCE PRN IV DECREASED GLUCOSE Last administered on 12/28/18at 10:49; Admin Dose 50 ML; Start 12/28/18 at 11:00 Ondansetron HCl (Zofran Inj) 4 mg ER BRIDGE PRN IV NAUSEA/VOMITING; Start 12/28/18 at 11:00; Stop 12/29/18 at 10:59 Acetaminophen (Tylenol Tab) 650 mg Q4H PRN PO pain; Start 12/28/18 at 11:30 Meclizine HCl (Antivert) 25 mg Q6H PRN PO vertigo; Start 12/28/18 at 11:30 Zolpidem Tartrate (Ambien) 5 mg HS MAY REPEAT X 1 PRN PO INSOMNIA; Start 12/28/18 at 21:00 Acarbose (Precose) 50 mg WITH MEALS PO ; Start 12/28/18 at 18:00 Amlodipine Besylate (Norvasc) 10 mg DAILY PO ; Start 12/28/18 at 13:00 Aspirin (Halfprin) 81 mg DAILY PO Last administered on 12/28/18at 13:32; Admin Dose 81 MG; Start 12/28/18 at 13:00 Clonidine (Catapres) 0.1 mg Q8H PRN PO ELEVATED BLOOD PRESSURE; Start 12/28/18 at 11:30 Famotidine (Pepcid) 20 mg DAILY PO Last administered on 12/28/18at 13:32; Admin Dose 20 MG; Start 12/28/18 at 13:00 Fenofibrate (Tricor) 145 mg DAILY PO Last administered on 12/28/18at 13:34; Admin Dose 145 MG; Start 12/28/18 at 13:00 Isosorbide Mononitrate (Imdur) 30 mg DAILY PO Last administered on 12/28/18at 13:25; Admin Dose 30 MG; Start 12/28/18 at 13:00 Levothyroxine Sodium (Synthroid) 75 mcg BEFORE BREAKFAST PO ; Start 12/29/18 at 07:00 Meclizine HCl (Antivert) 25 mg BID PRN PO DIZZINESS; Start 12/28/18 at 11:30 Metoprolol Succinate (Toprol Xl) 100 mg BID PO Last administered on 12/28/18at 13:33; Admin Dose 100 MG; Start 12/28/18 at 13:00 Oxybutynin Chloride (Ditropan Xl) 10 mg DAILY PO Last administered on 12/28/18at 13:33; Admin Dose 10 MG; Start 12/28/18 at 13:00 Insulin Aspart (Novolog Insulin Pen) 16 unit WITH MEALS SC ; Start 12/28/18 at 18:00 Atorvastatin Calcium (Lipitor) 10 mg DAILY@21 PO ; Start 12/28/18 at 21:00 Insulin Aspart (Novolog Insulin Pen) NOVOLOG *MODERATE* ALGORITHM WITH MEALS BEDTIME SC Last administered on 12/28/18at 13:32; Admin Dose 8 UNIT; Start 12/28/18 at 12:00 Ondansetron HCl (Zofran Inj) 4 mg Q4H PRN IV nausea; Start 12/28/18 at 11:30 Miscellaneous Information 1 ea NOTE XX ; Start 12/28/18 at 13:00 Glucose (Glutose) 15 gm Q15M PRN PO DECREASED GLUCOSE; Start 12/28/18 at 13:00 Glucose (Glutose) 22.5 gm Q15M PRN PO DECREASED GLUCOSE; Start 12/28/18 at 13:00 Dextrose (D50w Syringe) 25 ml Q15M PRN IV DECREASED GLUCOSE; Start 12/28/18 at 13:00 Dextrose (D50w Syringe) 50 ml Q15M PRN IV DECREASED GLUCOSE; Start 12/28/18 at 13:00 Glucagon (Glucagen) 1 mg Q15M PRN IM DECREASED GLUCOSE; Start 12/28/18 at 13:00 Glucose (Glutose) 15 gm Q15M PRN BUCCAL DECREASED GLUCOSE; Start 12/28/18 at 13:00 Heparin Sodium (Porcine) (Heparin (1000 Units/ml)) 4,000 unit AFTER DIALYSIS CATHETER ; Start 12/28/18 at 15:00 Albumin Human 100 ml @ 100 mls/hr WITH DIALYSIS PRN IV SBP <90 DURING DIALYSIS; Start 12/28/18 at 15:00 Sodium Chloride (NS) -To prime the dialy... DIRECTED FOR HD PRN IV HD; Start 12/28/18 at 15:00 Sodium Bicarbonate 100 meq/Sodium Chloride 1,100 ml @ 100 mls/hr Q11H IV ; Start 12/28/18 at 15:00; Status UNV Allergies: Coded Allergies: amoxicillin (Unverified Allergy, Unknown, 12/28/18) Social History Smoking Status: Never smoker Exam/Review of Systems Exam Vitals Vital Signs Date Temp Pulse Resp B/P (MAP) Pulse Ox O2 O2 Flow FiO2 Time Delivery Rate 12/28/18 98.0 114 24 119/52 95 Room Air 14:00 (74) 12/28/18 2.0 13:00 Exam Gen: awake, alert, NAD Neck: supple Heart: tachycardic Lungs: clear anteriorly Abd: obese, soft, NT Extr: BUE/BLE warm, no cyanosis Pulses: 2+brachial/radial and 2+DP pulses bilaterally Results Result Diagram: 12/28/18 0956 12/28/18 1218 Results 24hrs Laboratory Tests Test 12/28/18 09:56 12/28/18 10:29 12/28/18 10:46 12/28/18 11:25 White Blood Count 7.0 Red Blood Count 3.83 L Hemoglobin 12.0 L Hematocrit 37.4 L Mean Corpuscular 97.7 Volume Mean Corpuscular 31.3 Hemoglobin Mean Corpuscular 32.1 Hemoglobin Concen t Red Cell 12.9 Distribution Width Platelet Count 261 Mean Platelet 10.7 H Volume Immature 0.900 H Granulocytes % Neutrophils % 80.5 H Lymphocytes % 15.6 Monocytes % 2.7 Eosinophils % 0.0 Basophils % 0.3 Nucleated Red 0.0 Blood Cells % Immature 0.060 H Granulocytes # Neutrophils # 5.6 Lymphocytes # 1.1 Monocytes # 0.2 L Eosinophils # 0.0 Basophils # 0.0 Nucleated Red 0.0 Blood Cells # Prothrombin Time 15.2 H Prothrombin Time 1.2 Ratio INR International 1.19 Normalized Ratio Activated 29.2 Partial Thrombopl ast Time Sodium Level 132 L Potassium Level 7.1 *H Chloride Level 94 L Carbon Dioxide 12 L Level Anion Gap 26 H Blood Urea 82 H Nitrogen Creatinine 11.03 H Est Glomerular 5 L Filtrat Rate mL/min Glucose Level 283 H Bedside Glucose 269 H 250 H 329 H Hemoglobin A1c 8.1 H Calcium Level 10.0 Troponin I 0.074 Triglycerides 189 H Level Cholesterol Level 127 LDL Cholesterol, 61 Calculated HDL Cholesterol 28 L Cholesterol/HDL 4.5 Ratio Urine Color STRAW Urine Clarity CLEAR Urine pH 5.0 Urine Specific 1.007 [place] Urine Ketones 1+ H Urine Nitrite NEGATIVE Urine Bilirubin NEGATIVE Urine NEGATIVE Urobilinogen Urine Leukocyte NEGATIVE Esterase Urine Microscopic 1 RBC Urine Microscopic 2 WBC Urine Hemoglobin 1+ H Urine Glucose 3+ H Urine Total 1+ H Protein Urine Opiates NEGATIVE Screen Urine NEGATIVE Barbiturates Urine NEGATIVE Amphetamines Screen Urine NEGATIVE Benzodiazepines Screen Urine Cocaine NEGATIVE Screen Urine NEGATIVE Cannabinoids Test 12/28/18 12:12 12/28/18 12:18 12/28/18 13:21 Blood Gas Blood arterial Specimen Source Arterial Blood 12/28/2018 12:22: Date Drawn 22 PM Arterial Blood pH 7.103 *L (Temp corrected) Arterial Blood 31.8 L pCO2 (Temp correct) Arterial Blood 88.8 pO2 (Temp corrected) Arterial Blood 9.7 *L HCO3 Arterial Blood -18.7 L Base Excess Arterial Blood 94.6 L Oxygen Saturation Del Test ACCEPTAB Arterial Blood Right Radial Gas Puncture Site Arterial 0.3 Blood Carboxyhemo globin Arterial Blood 0.5 Methemoglobin Blood Gas A-a O2 22.9 Differential Oxyhemoglobin 93.8 Percent Blood Gas 37.0 Temperature Blood Gas ROOM AIR Modality FiO2 21.[address] GARCIA Critical Value Read Back Blood Gas RT Notified Whom Blood Gas 12/28/2018 12:33: Notified Time 43 PM Sodium Level 135 Potassium Level 5.3 H Chloride Level 96 L Carbon Dioxide 9 *L Level Anion Gap 30 H Blood Urea 83 H Nitrogen Creatinine 11.25 H Est Glomerular 3 L Filtrat Rate mL/min Glucose Level 304 H Calcium Level 10.4 H Bedside Glucose 263 H Medications Medication Current Medications Dextrose (D50w Syringe) ONCE PRN IV DECREASED GLUCOSE Last administered on 12/28/18at 10:49; Admin Dose 50 ML; Start 12/28/18 at 11:00 Ondansetron HCl (Zofran Inj) 4 mg ER BRIDGE PRN IV NAUSEA/VOMITING; Start 12/28/18 at 11:00; Stop 12/29/18 at 10:59 Acetaminophen (Tylenol Tab) 650 mg Q4H PRN PO pain; Start 12/28/18 at 11:30 Meclizine HCl (Antivert) 25 mg Q6H PRN PO vertigo; Start 12/28/18 at 11:30 Zolpidem Tartrate (Ambien) 5 mg HS MAY REPEAT X 1 PRN PO INSOMNIA; Start 12/28/18 at 21:00 Acarbose (Precose) 50 mg WITH MEALS PO ; Start 12/28/18 at 18:00 Amlodipine Besylate (Norvasc) 10 mg DAILY PO ; Start 12/28/18 at 13:00 Aspirin (Halfprin) 81 mg DAILY PO Last administered on 12/28/18at 13:32; Admin Dose 81 MG; Start 12/28/18 at 13:00 Clonidine (Catapres) 0.1 mg Q8H PRN PO ELEVATED BLOOD PRESSURE; Start 12/28/18 at 11:30 Famotidine (Pepcid) 20 mg DAILY PO Last administered on 12/28/18 13:32; Admin Dose 20 MG; Start 12/28/18 at 13:00 Fenofibrate (Tricor) 145 mg DAILY PO Last administered on 12/28/18at 13:34; Admi n Dose 145 MG; Start 12/28/18 at 13:00 Isosorbide Mononitrate (Imdur) 30 mg DAILY PO Last administered on 12/28/18at 13:25; Admin Dose 30 MG; Start 12/28/18 at 13:00 Levothyroxine Sodium (Synthroid) 75 mcg BEFORE BREAKFAST PO ; Start 12/29/18 at 07:00 Meclizine HCl (Antivert) 25 mg BID PRN PO DIZZINESS; Start 12/28/18 at 11:30 Metoprolol Succinate (Toprol Xl) 100 mg BID PO Last administered on 12/28/18at 13:33; Admin Dose 100 MG; Start 12/28/18 at 13:00 Oxybutynin Chloride (Ditropan Xl) 10 mg DAILY PO Last administered on 12/28/18at 13:33; Admin Dose 10 MG; Start 12/28/18 at 13:00 Insulin Aspart (Novolog Insulin Pen) 16 unit WITH MEALS SC ; Start 12/28/18 at 18:00 Atorvastatin Calcium (Lipitor) 10 mg DAILY@21 PO ; Start 12/28/18 at 21:00 Insulin Aspart (Novolog Insulin Pen) NOVOLOG *MODERATE* ALGORITHM WITH MEALS BEDTIME SC Last administered on 12/28/18at 13:32; Admin Dose 8 UNIT; Start 12/28/18 at 12:00 Ondansetron HCl (Zofran Inj) 4 mg Q4H PRN IV nausea; Start 12/28/18 at 11:30 Miscellaneous Information 1 ea NOTE XX ; Start 12/28/18 at 13:00 Glucose (Glutose) 15 gm Q15M PRN PO DECREASED GLUCOSE; Start 12/28/18 at 13:00 Glucose (Glutose) 22.5 gm Q15M PRN PO DECREASED GLUCOSE; Start 12/28/18 at 13:00 Dextrose (D50w Syringe) 25 ml Q15M PRN IV DECREASED GLUCOSE; Start 12/28/18 at 13:00 Dextrose (D50w Syringe) 50 ml Q15M PRN IV DECREASED GLUCOSE; Start 12/28/18 at 13:00 Glucagon (Glucagen) 1 mg Q15M PRN IM DECREASED GLUCOSE; Start 12/28/18 at 13:00 Glucose (Glutose) 15 gm Q15M PRN BUCCAL DECREASED GLUCOSE; Start 12/28/18 at 13:00 Heparin Sodium (Porcine) (Heparin (1000 Units/ml)) 4,000 unit AFTER DIALYSIS CATHETER ; Start 12/28/18 at 15:00 Albumin Human 100 ml @ 100 mls/hr WITH DIALYSIS PRN IV SBP <90 DURING DIALYSIS; Start 12/28/18 at 15:00 Sodium Chloride (NS) -To prime the dialy... DIRECTED FOR HD PRN IV HD; Start 12/28/18 at 15:00 Sodium Bicarbonate 100 meq/Sodium Chloride 1,100 ml @ 100 mls/hr Q11H IV ; Start 12/28/18 at 15:00; Status UNSANJAY MARTÍNEZ MD Dec 28, 2018 15:02
--- NOTE | 2018-12-28 15:36 | SIPON ---
Date/Time of Note Date/Time of Note DATE: 12/28/18 TIME: 15:28 Operative Report Preoperative Diagnosis Acute kidney failure Postoperative Diagnosis same Operation/Procedure Performed RIJ temporary dialysis catheter placement Surgeon see signature line behavioral modification assistant n/a Anesthesia: other (Local) Estimated blood loss: minimal Transfusion Required none Specimen n/a Grafts/Implants none Complications none SANJAY SANTO MD Dec 28, 2018 15:36
[2018-12-28] MEDS: SODIUM BICARBONATE (IV ADD) 100 MEQ in SOD CHLORIDE 0.45% 900 ML IV SCH (16:42)
[2018-12-28] MEDS: ACARBOSE 50 MG TAB PO SCH (18:00)
[2018-12-28] MEDS ORDERED: MANNITOL 25% 50 ML IV PRN (19:30)
[2018-12-28] MEDS: ATORVASTATIN 10 MG TAB PO SCH (20:49)
[2018-12-28] MEDS ORDERED: ZOLPIDEM 5 MG TAB PO PRN (21:00)
[2018-12-28] MEDS: HEPARIN 1000 UNITS/ML 10 ML INJ CATHETER SCH (23:30)
[2018-12-29] VITALS (22 sets, daily range): BP systolic 88–126; BP diastolic 50–65; PULSE 73–90; RESP 16–22
[2018-12-29] MEDS: SODIUM BICARBONATE (IV ADD) 100 MEQ in SOD CHLORIDE 0.45% 900 ML IV SCH ×3 (01:00→21:00)
[2018-12-29] MEDS: LEVOTHYROXINE 75 MCG TAB PO SCH (07:00)
--- NOTE | 2018-12-29 08:09 | OPR ---
DATE OF OPERATION: 12/28/2018 PREOPERATIVE DIAGNOSIS: Acute renal failure. POSTOPERATIVE DIAGNOSIS: Acute renal failure. PROCEDURE: Right internal jugular vein Zeeshan catheter placement with ultrasound and fluoroscopy. ANESTHESIA: Local. ESTIMATED BLOOD LOSS: Minimal. SPECIMENS: None. COMPLICATIONS: None. PREOPERATIVE INDICATIONS: This is a 58-year-old female with presentation of acute renal failure of u nclear etiology. 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 However, after further review did decide to request only a temporary dialysis catheter placement. She was hyperkalemic with potassium of 7 that was treated medically and now is d own to 5.3. She now presents for a temporary Zeeshan catheter placement. The indications, risks, an d benefits of the procedure were discussed with the patient's family, who understood and agreed to pr oceed. DESCRIPTION OF PROCEDURE: The patient was properly identified, brought to the angiography suite and placed in supine position. Her right neck and chest were prepped and draped in the usual sterile fas hion. Ultrasound was used to evaluate the internal jugular vein, which was noted to be patent. Loca l anesthesia was injected into the planned access site. A micropuncture needle was used to access th e vein under ultrasound guidance. A micropuncture sheath was then exchanged. A 0.038 J-wire was the n advanced into the inferior vena cava under fluoroscopy. A skin leatha was then created and sequentia l dilation of the tract was then performed. Then, 16 cm temporary dialysis catheter was then placed over the wire and the tip was placed into the top of the right atrium. There was good position under fluoroscopy. The wire was withdrawn. All the three ports were caro back and flushed easily and wer e locked with heparinized saline 1000 units per mL at the appropriate volumes. The third extra port was a pigtail for the IV port. Caps were then placed. The catheter was affixed to the skin using 3- 0 nylon sutures. Biopatch and dry dressings were then placed. The patient tolerated the procedure w ell without any immediate complications and transferred to recovery room in good condition. Dictated By: SANJAY GIORDANO/GIUSEPPE Conf#: [id number] DID#: [id number] CC: LUCIANA MUHAMMAD MD;*EndCC*
[2018-12-29] MEDS: FAMOTIDINE 20 MG TAB PO SCH (08:30)
[2018-12-29] MEDS: ISOSORBIDE MONONITRATE(SR)30 MG TAB PO SCH (08:30)
[2018-12-29] MEDS: FENOFIBRATE 145 MG TAB PO SCH (08:31)
[2018-12-29] MEDS: ASPIRIN (EC) 81 MG TAB PO SCH (08:31)
[2018-12-29] MEDS: METOPROLOL (XL) 100 MG TAB PO SCH ×2 (08:31→19:43)
[2018-12-29] MEDS: AMLODIPINE 10 MG TAB PO SCH (08:31)
[2018-12-29] MEDS: ACARBOSE 50 MG TAB PO SCH ×3 (08:43→17:27)
[2018-12-29] MEDS: INSULIN ASPART [NOVOLOG] 3 ML PEN SC SCH ×7 (08:43→21:00)
--- NOTE | 2018-12-29 10:11 | CONS ---
Assessment/Plan Assessment/Plan Assessment/Plan (Daily) 1. Acute kidney injury on CKD III due to severe prerenal azotemia 2. severe metabolic acidosis with HCO3 9, PH 7.1 3. Acute hyperkalemia with K 7.1 on admission due to NOAH 4. 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 Anemia of CKD III 6. Moderate to severe dehydration 7/ h/o HTN 8/ H/.o HL Plan: s/p Emergent HD yesterday due to hyperkalemia and acidosis- now more stable, Plan for HD x 3 hr today, pt made 1.2 L urine output, she has good chances for kidney imporvement, will hold off any furthe rHD now, keep pardo cathter and strict I/O Renal US done on 12/28/18 showed The kidneys are normal in size, contour, cortical thickness and cortical echogenicity. The right kidney measures 10.1 cm. The left kidney measures 11.8 cm. no ACEIARB due to Noah and acute hyperkalemia IV hydralazine prn Dr. Barron will be following from 12/30/18 Consultation Date/Type/Reason Admit Date/Time Dec 28, 2018 at 10:46 Initial Consult Date 12/28/18 Type of Consult NEPHROLOGY Requesting Provider: ANABELLE GARCIA MD Date/Time of Note DATE: 12/29/18 TIME: 10:11 24 HR Interval Summary Free Text/Dictation s/p HD x 2 hr yesterday, now getting HD x 3 hr today , BP stable, Pt has pardo catheter, Exam/Review of Systems Exam Vitals Vital Signs Date Temp Pulse Resp B/P (MAP) Pulse Ox O2 O2 Flow FiO2 Time Delivery Rate 12/29/18 89 08:00 12/29/18 98.2 16 126/58 96 Room Air 07:16 (80) 12/28/18 2.0 13:00 Intake and Output 12/28/18 12/28/18 12/29/18 1515:00 23:00 07:00 IntakeIntake Total 250 ml 1600 ml OutputOutput Total 1550 ml 3100 ml BalanceBalance -1300 ml -1500 ml Constitutional: alert Psych: no complaints Head: normocephalic ENMT: other (Right IJ Zeeshan Catheter ) Neck: supple Respiratory: congested cough, crackles/rales, diminished breath sounds Cardiovascular: regular rate and rhythm, nl pulses Gastrointestinal: soft, non-tender Musculoskeletal: nl extremities to inspection, muscle weakness Neurological: EARRING MAKER II-XII intact, nl mental status, nl speech, nl strength Lymph: nl lymph nodes Results Result Diagram: 12/28/18 0956 12/29/18 0503 Results 24hrs Laboratory Tests Test 12/28/18 10:29 12/28/18 10:46 12/28/18 11:25 12/28/18 12:12 Urine Color STRAW Urine Clarity CLEAR Urine pH 5.0 Urine Specific 1.007 [place] Urine Ketones 1+ H Urine Nitrite NEGATIVE Urine Bilirubin NEGATIVE Urine NEGATIVE Urobilinogen Urine Leukocyte NEGATIVE Esterase Urine Microscopic 1 RBC Urine Microscopic 2 WBC Urine Eosinophils 0.0 % Urine Hemoglobin 1+ H Urine Random 30.51 Creatinine Urine Random 92 H Sodium Urine 2.26 Protein/Creatinin e Ratio Urine Glucose 3+ H Urine Total 69.0 H Protein Urine Opiates NEGATIVE Screen Urine NEGATIVE Barbiturates Urine NEGATIVE Amphetamines Screen Urine NEGATIVE Benzodiazepines Screen Urine Cocaine NEGATIVE Screen Urine NEGATIVE Cannabinoids Bedside Glucose 250 H 329 H Blood Gas Blood arterial Specimen Source Arterial Blood 12/28/2018 12:22: Date Drawn 22 PM Arterial Blood pH 7.103 *L (Temp corrected) Arterial Blood 31.8 L pCO2 (Temp correct) Arterial Blood 88.8 pO2 (Temp corrected) Arterial Blood 9.7 *L HCO3 Arterial Blood -18.7 L Base Excess Arterial Blood 94.6 L Oxygen Saturation Del Test ACCEPTAB Arterial Blood Right Radial Gas Puncture Site Arterial 0.3 Blood Carboxyhemo globin Arterial Blood 0.5 Methemoglobin Blood Gas A-a O2 22.9 Differential Oxyhemoglobin 93.8 Percent Blood Gas 37.0 Temperature Blood Gas ROOM AIR Modality FiO2 21.[address] GARCIA Critical Value Read Back Blood Gas RT Notified Whom Blood Gas 12/28/2018 12:33: Notified Time 43 PM Test 12/28/18 12:15 12/28/18 12:18 12/28/18 13:21 12/28/18 16:47 Hepatitis B NEGATIVE Surface Antigen Sodium Level 135 Potassium Level 5.3 H 6.1 *H Chloride Level 96 L Carbon Dioxide 9 *L Level Anion Gap 30 H Blood Urea 83 H Nitrogen Creatinine 11.25 H Est Glomerular 3 L Filtrat Rate mL/min Glucose Level 304 H Calcium Level 10.4 H Bedside Glucose 263 H Test 12/28/18 18:55 12/28/18 20:48 12/28/18 22:18 12/29/18 05:03 Bedside Glucose 221 H 226 H 173 Sodium Level 139 Potassium Level 4.8 Chloride Level 98 Carbon Dioxide 25 # Level Anion Gap 16 #H Blood Urea 66 H Nitrogen Creatinine 7.75 #H Est Glomerular 5 L Filtrat Rate mL/min Glucose Level 198 # Uric Acid 9.2 H Calcium Level 8.9 Creatine Kinase 121 Hepatitis B NEGATIVE Surface Antigen Hepatitis B Core NEGATIVE Total Antibody Hepatitis C NEGATIVE Antibody HIV (1&2) NEGATIVE Antibody Test 12/29/18 08:13 Bedside Glucose 200 Medications Medication Current Medications Dextrose (D50w Syringe) ONCE PRN IV DECREASED GLUCOSE Last administered on 12/28/18at 10:49; Admin Dose 50 ML; Start 12/28/18 at 11:00 Acetaminophen (Tylenol Tab) 650 mg Q4H PRN PO pain; Start 12/28/18 at 11:30 Meclizine HCl (Antivert) 25 mg Q6H PRN PO vertigo; Start 12/28/18 at 11:30 Zolpidem Tartrate (Ambien) 5 mg HS MAY REPEAT X 1 PRN PO INSOMNIA; Start 12/28/18 at 21:00 Acarbose (Precose) 50 mg WITH MEALS PO ; Start 12/28/18 at 18:00 Amlodipine Besylate (Norvasc) 10 mg DAILY PO Last administered on 12/29/18at 08:31; Admin Dose 10 MG; Start 12/28/18 at 13:00 Aspirin (Halfprin) 81 mg DAILY PO Last administered on 12/29/18at 08:31; Admin Dose 81 MG; Start 12/28/18 at 13:00 Clonidine (Catapres) 0.1 mg Q8H PRN PO ELEVATED BLOOD PRESSURE; Start 12/28/18 at 11:30 Famotidine (Pepcid) 20 mg DAILY PO Last administered on 12/29/18at 08:30; Admin Dose 20 MG; Start 12/28/18 at 13:00 Fenofibrate (Tricor) 145 mg DAILY PO Last administered on 12/29/18at 08:31; Admin Dose 145 MG; Start 12/28/18 at 13:00 Isosorbide Mononitrate (Imdur) 30 mg DAILY PO Last administered on 12/29/18at 08:30; Admin Dose 30 MG; Start 12/28/18 at 13:00 Levothyroxine Sodium (Synthroid) 75 mcg BEFORE BREAKFAST PO Last administered on 12/29/18at 07:00; Admin Dose 75 MCG; Start 12/29/18 at 07:00 Meclizine HCl (Antivert) 25 mg BID PRN PO DIZZINESS; Start 12/28/18 at 11:30 Metoprolol Succinate (Toprol Xl) 100 mg BID PO Last administered on 12/29/18 08:31; Admin Dose 100 MG; Start 12/28/18 at 13:00 Oxybutynin Chloride (Ditropan Xl) 10 mg DAILY PO Last administered on 12/28/18 13:33; Admin Dose 10 MG; Start 12/28/18 at 13:00 Insulin Aspart (Novolog Insulin Pen) 16 unit WITH MEALS SC Last administered on 12/29/18 08:43; Admin Dose 16 UNIT; Start 12/28/18 at 18:00 Atorvastatin Calcium (Lipitor) 10 mg DAILY@21 PO Last administered on 12/28/18at 20:49; Admin Dose 10 MG; Start 12/28/18 at 21:00 Insulin Aspart (Novolog Insulin Pen) NOVOLOG *MODERATE* ALGORITHM WITH MEALS BEDTIME SC Last administered on 12/29/18 08:43; Admin Dose 4 UNIT; Start 12/28/18 at 12:00 Ondansetron HCl (Zofran Inj) 4 mg Q4H PRN IV nausea; Start 12/28/18 at 11:30 Miscellaneous Information 1 ea NOTE XX ; Start 12/28/18 at 13:00 Glucose (Glutose) 15 gm Q15M PRN PO DECREASED GLUCOSE; Start 12/28/18 at 13:00 Glucose (Glutose) 22.5 gm Q15M PRN PO DECREASED GLUCOSE; Start 12/28/18 at 13:00 Dextrose (D50w Syringe) 25 ml Q15M PRN IV DECREASED GLUCOSE; Start 12/28/18 at 13:00 Dextrose (D50w Syringe) 50 ml Q15M PRN IV DECREASED GLUCOSE; Start 12/28/18 at 13:00 Glucagon (Glucagen) 1 mg Q15M PRN IM DECREASED GLUCOSE; Start 12/28/18 at 13:00 Glucose (Glutose) 15 gm Q15M PRN BUCCAL DECREASED GLUCOSE; Start 12/28/18 at 13:00 Albumin Human 100 ml @ 100 mls/hr WITH DIALYSIS PRN IV SBP <90 DURING DIALYSIS; Start 12/28/18 at 15:00 Sodium Chloride (NS) -To prime the dialy... DIRECTED FOR HD PRN IV HD; Start 12/28/18 at 15:00 Sodium Bicarbonate 100 meq/Sodium Chloride 1,000 ml @ 100 mls/hr Q10H IV Last administered on 12/28/18at 16:42; Admin Dose 100 MLS/HR; Start 12/28/18 at 15:00 Mannitol 50 ml @ 50 mls/5 min WITH DIALYSIS PRN IV DISEQUILIBRIUM SYNDROME PPX Last administered on 12/28/18at 21:04; Admin Dose 50 MLS/5 MIN; Start 12/28/18 at 19:30 Heparin Sodium (Porcine) (Heparin (1000 Units/ml)) 2,300 unit AFTER DIALYSIS CATHETER Last administered on 12/28/18at 23:30; Admin Dose 2,300 UNIT; Start 12/28/18 at 22:30 ANABELLE GARCIA MD Dec 29, 2018 10:11
[2018-12-29] MEDS: HEPARIN 1000 UNITS/ML 10 ML INJ CATHETER SCH (13:13)
[2018-12-29] MEDS: ACETAMINOPHEN 325 MG TAB PO PRN ×2 (14:56→23:33)
--- NOTE | 2018-12-29 16:05 | PN ---
Date/Time of Note Date/Time of Note DATE: 12/29/18 TIME: 16:04 Assessment/Plan VTE Prophylaxis Risk score (from Nsg)>0 risk: 3 SCD applied (from Nsg): Yes Pharmacological prophylaxis: heparin Lines/Catheters IV Catheter Type (from Nrsg): Mid Line Urinary Cath still in place: Yes Reason Cath still needed: other (indicate) (close monitoring ) Assessment/Plan Hospital Course 58 years old female with history of hypertension, diabetes who was recently admitted to [facility] for nausea vomiting diarrhea and chest pain. She was transferred to [facility] where a CT angiogram coronary was done. Patient returned to the emergency room at [facility] with increasing vomiting and weakness. She was found to be in acute renal failure. She required hemodialysis via a temporary catheter given hyperkalemia and severe acidosis. #Acute renal failure, in the setting of prerenal acidemia + contrast nephropathy -HD per nephrology -Avoid nephrotoxic agents, renally dose medications #CAD , continue ASA, Statin , Imdur , BB #Hypertension - continue Metop and Norvasc #Diabetes on insulin, continue Lantus and sliding scale #Hyperlipidemia, continue Statin and fenofibrate # PPX: Heparin and Pepcid Problems: (1) HTN (hypertension) (2) Diabetes mellitus (3) ARF (acute renal failure) Status: Acute Qualifiers: Acute renal failure type: unspecified Qualified Codes: N17.9 - Acute kidney failure, unspecified (4) Uremia Status: Acute Result Diagram: 12/28/18 0956 12/29/18 0503 Results 24hrs Laboratory Tests Test 12/28/18 16:47 12/28/18 18:55 12/28/18 20:48 12/28/18 22:18 Potassium Level 6.1 *H Bedside Glucose 221 H 226 H 173 Test 12/29/18 05:03 12/29/18 08:13 12/29/18 11:47 Sodium Level 139 Potassium Level 4.8 Chloride Level 98 Carbon Dioxide Level 25 # Anion Gap 16 #H Blood Urea Nitrogen 66 H Creatinine 7.75 #H Est Glomerular 5 L Filtrat Rate mL/min Glucose Level 198 # Uric Acid 9.2 H Calcium Level 8.9 Creatine Kinase 121 Hepatitis B Surface NEGATIVE Antigen Hepatitis B Core NEGATIVE Total Antibody Hepatitis C Antibody NEGATIVE HIV (1&2) Antibody NEGATIVE Bedside Glucose 200 87 Subjective 24 Hr Interval Summary Free Text/Dictation No chest pain, no nausea no vomiting. Tolerating dialysis. Tolerating p.o. Exam/Review of Systems Exam Vitals Vital Signs Date Temp Pulse Resp B/P (MAP) Pulse Ox O2 O2 Flow FiO2 Time Delivery Rate 12/29/18 76 14:05 12/29/18 18 109/57 96 Room Air 10:50 (74) 12/29/18 98.2 07:16 12/28/18 2.0 13:00 Intake and Output 12/28/18 12/28/18 12/29/18 1515:00 23:00 07:00 IntakeIntake Total 250 ml 1600 ml OutputOutput Total 1550 ml 3100 ml BalanceBalance -1300 ml -1500 ml Exam Gen.: In no acute distress, pleasant and cooperative Eyes: Anicteric, conjunctiva normal, PERRLA, EOM intact HEENT: Normocephalic, atraumatic, hearing grossly intact, oral mucosa moist, no oral lesions Neck: Supple, no masses, trachea midline Cardiovascular: Regular rate and rhythm, no peripheral edema, no murmurs, no gallops, no rubs Respiratory: Clear to auscultation bilaterally, no use of accessory muscles of respiration, no wheezes, expiration not prolonged Extremities: No cyanosis, no edema, no calf tenderness, pulses bilaterally palpable, extremities warm and perfused Abdomen: Soft, not distended, nontender, bowel sounds present, no guarding, no rebound Neurological: Alert and oriented x3, speech normal, CN 2-12 no deficit, no motor or sensory deficit, coordination normal Heme: No acute bleeding, no ecchymosis or petechia Results Results 24hrs Laboratory Tests Test 12/28/18 16:47 12/28/18 18:55 12/28/18 20:48 12/28/18 22:18 Potassium Level 6.1 *H Bedside Glucose 221 H 226 H 173 Test 12/29/18 05:03 12/29/18 08:13 12/29/18 11:47 Sodium Level 139 Potassium Level 4.8 Chloride Level 98 Carbon Dioxide Level 25 # Anion Gap 16 #H Blood Urea Nitrogen 66 H Creatinine 7.75 #H Est Glomerular 5 L Filtrat Rate mL/min Glucose Level 198 # Uric Acid 9.2 H Calcium Level 8.9 Creatine Kinase 121 Hepatitis B Surface NEGATIVE Antigen Hepatitis B Core NEGATIVE Total Antibody Hepatitis C Antibody NEGATIVE HIV (1&2) Antibody NEGATIVE Bedside Glucose 200 87 Medications Medication Current Medications Dextrose (D50w Syringe) ONCE PRN IV DECREASED GLUCOSE Last administered on 12/28/18 10:49; Admin Dose 50 ML; Start 12/28/18 at 11:00 Acetaminophen (Tylenol Tab) 650 mg Q4H PRN PO pain Last administered on 12/29/18 14:56; Admin Dose 650 MG; Start 12/28/18 at 11:30 Meclizine HCl (Antivert) 25 mg Q6H PRN PO vertigo; Start 12/28/18 at 11:30 Zolpidem Tartrate (Ambien) 5 mg HS MAY REPEAT X 1 PRN PO INSOMNIA; Start 12/28/18 at 21:00 Acarbose (Precose) 50 mg WITH MEALS PO Last administered on 12/29/18 08:43; Admin Dose 50 MG; Start 12/28/18 at 18:00 Amlodipine Besylate (Norvasc) 10 mg DAILY PO Last administered on 12/29/18 08:31; Admin Dose 10 MG; Start 12/28/18 at 13:00 Aspirin (Halfprin) 81 mg DAILY PO Last administered on 12/29/18 08:31; Admin Dose 81 MG; Start 12/28/18 at 13:00 Clonidine (Catapres) 0.1 mg Q8H PRN PO ELEVATED BLOOD PRESSURE; Start 12/28/18 at 11:30 Famotidine (Pepcid) 20 mg DAILY PO Last administered on 12/29/18 08:30; Admin Dose 20 MG; Start 12/28/18 at 13:00 Fenofibrate (Tricor) 145 mg DAILY PO Last administered on 12/29/18 08:31; Admin Dose 145 MG; Start 12/28/18 at 13:00 Isosorbide Mononitrate (Imdur) 30 mg DAILY PO Last administered on 12/29/18 08:30; Admin Dose 30 MG; Start 12/28/18 at 13:00 Levothyroxine Sodium (Synthroid) 75 mcg BEFORE BREAKFAST PO Last administered on 12/29/18 07:00; Admin Dose 75 MCG; Start 12/29/18 at 07:00 Meclizine HCl (Antivert) 25 mg BID PRN PO DIZZINESS; Start 12/28/18 at 11:30 Metoprolol Succinate (Toprol Xl) 100 mg BID PO Last administered on 12/29/18at 08:31; Admin Dose 100 MG; Start 12/28/18 at 13:00 Oxybutynin Chloride (Ditropan Xl) 10 mg DAILY PO Last administered on 12/28/18at 13:33; Admin Dose 10 MG; Start 12/28/18 at 13:00 Insulin Aspart (Novolog Insulin Pen) 16 unit WITH MEALS SC Last administered on 12/29/18at 08:43; Admin Dose 16 UNIT; Start 12/28/18 at 18:00 Atorvastatin Calcium (Lipitor) 10 mg DAILY@21 PO Last administered on 12/28/18at 20:49; Admin Dose 10 MG; Start 12/28/18 at 21:00 Insulin Aspart (Novolog Insulin Pen) NOVOLOG *MODERATE* ALGORITHM WITH MEALS BEDTIME SC Last administered on 12/29/18at 08:43; Admin Dose 4 UNIT; Start 12/28/18 at 12:00 Ondansetron HCl (Zofran Inj) 4 mg Q4H PRN IV nausea; Start 12/28/18 at 11:30 Miscellaneous Information 1 ea NOTE XX ; Start 12/28/18 at 13:00 Glucose (Glutose) 15 gm Q15M PRN PO DECREASED GLUCOSE; Start 12/28/18 at 13:00 Glucose (Glutose) 22.5 gm Q15M PRN PO DECREASED GLUCOSE; Start 12/28/18 at 13:00 Dextrose (D50w Syringe) 25 ml Q15M PRN IV DECREASED GLUCOSE; Start 12/28/18 at 13:00 Dextrose (D50w Syringe) 50 ml Q15M PRN IV DECREASED GLUCOSE; Start 12/28/18 at 13:00 Glucagon (Glucagen) 1 mg Q15M PRN IM DECREASED GLUCOSE; Start 12/28/18 at 13:00 Glucose (Glutose) 15 gm Q15M PRN BUCCAL DECREASED GLUCOSE; Start 12/28/18 at 13:00 Albumin Human 100 ml @ 100 mls/hr WITH DIALYSIS PRN IV SBP <90 DURING DIALYSIS; Start 12/28/18 at 15:00 Sodium Chloride (NS) -To prime the dialy... DIRECTED FOR HD PRN IV HD; Start 12/28/18 at 15:00 Sodium Bicarbonate 100 meq/Sodium Chloride 1,000 ml @ 100 mls/hr Q10H IV Last administered on 12/28/18 16:42; Admin Dose 100 MLS/HR; Start 12/28/18 at 15:00 Mannitol 50 ml @ 50 mls/5 min WITH DIALYSIS PRN IV DISEQUILIBRIUM SYNDROME PPX Last administered on 12/28/18at 21:04; Admin Dose 50 MLS/5 MIN; Start 12/28/18 at 19:30 Heparin Sodium (Porcine) (Heparin (1000 Units/ml)) 2,300 unit AFTER DIALYSIS CATHETER Last administered on 12/29/18 13:13; Admin Dose 2,300 UNIT; Start 06/07 at 22:30 GOLDY APARICIO MD Dec 29, 2018 16:05
[2018-12-29] MEDS: OXYBUTYNIN (XL) 5 MG TAB PO SCH (16:25)
[2018-12-29] MEDS: ATORVASTATIN 10 MG TAB PO SCH (19:39)
[2018-12-29] MEDS: HEPARIN 5,000 UNIT/1 ML VIAL SC SCH (21:00)
[2018-12-30] VITALS (10 sets, daily range): BP systolic 103–143; BP diastolic 51–61; PULSE 66–81; RESP 18–20
[2018-12-30] MEDS: SODIUM BICARBONATE (IV ADD) 100 MEQ in SOD CHLORIDE 0.45% 900 ML IV SCH ×2 (05:11→18:24)
[2018-12-30] MEDS: LEVOTHYROXINE 75 MCG TAB PO SCH (05:11)
[2018-12-30] MEDS: FENOFIBRATE 145 MG TAB PO SCH (08:26)
[2018-12-30] MEDS: FAMOTIDINE 20 MG TAB PO SCH (08:26)
[2018-12-30] MEDS: AMLODIPINE 10 MG TAB PO SCH (08:27)
[2018-12-30] MEDS: OXYBUTYNIN (XL) 5 MG TAB PO SCH (08:27)
[2018-12-30] MEDS: ISOSORBIDE MONONITRATE(SR)30 MG TAB PO SCH (08:27)
[2018-12-30] MEDS: METOPROLOL (XL) 100 MG TAB PO SCH ×2 (08:28→21:00)
[2018-12-30] MEDS: ASPIRIN (EC) 81 MG TAB PO SCH (08:28)
[2018-12-30] MEDS: INSULIN ASPART [NOVOLOG] 3 ML PEN SC SCH ×7 (08:36→21:00)
[2018-12-30] MEDS: HEPARIN 5,000 UNIT/1 ML VIAL SC SCH ×2 (08:36→21:00)
[2018-12-30] MEDS: ACARBOSE 50 MG TAB PO SCH ×3 (08:43→17:59)
--- NOTE | 2018-12-30 09:15 | PN ---
DATE: 12/30/2018 SUBJECTIVE: The patient is stable, no events overnight. Urinary output has been adequate. No hemop tysis, hematemesis or hematochezia noted. OBJECTIVE: VITAL SIGNS: Blood pressure is 139/60, respirations 20, pulse 74, temperature 98.1. HEENT: Head is normocephalic. NECK: Supple. HEART: Regular rate. LUNGS: Show diminished breath sounds at the base. ABDOMEN: Soft, nontender to palpation. No rebound or guarding. EXTREMITIES: Negative for clubbing, cyanosis, no edema. DERMATOLOGIC: No rashes. MUSCULOSKELETAL: No joint effusion. NEUROLOGIC: No change in exam. MEDICATIONS: The patient's medications have been reviewed. LABORATORY DATA: Has been reviewed. IMAGING STUDIES: Have been reviewed. ASSESSMENT AND PLAN: 1. Nonoliguric acute kidney injury on top of chronic kidney disease stage III. Etiology of acute ki dney injury is unclear, possibly due to acute tubular necrosis. The patient was initiated on urgent hemodialysis for solute clearance and volume removal. The patient appears to be recovering. At this point, will hold hemodialysis. We will continue to monitor renal function and electrolytes closely. 2. Metabolic acidosis secondary to acute kidney injury, improved. Continue to monitor. 3. Hyperkalemia secondary to acute kidney injury, resolving. 4. Mineral bone disorder, monitor calcium and phosphorus levels. 5. Anemia. Monitor hemoglobin and hematocrit levels. 6. History of hypertension. Continue to monitor. 7. Coronary artery disease. Continue medical management. 8. Diabetes. Continue current insulin regimen. 9. Gastrointestinal and deep venous thrombosis prophylaxis. Dictated By: ISABEL OCHOA/GIUSEPPE Conf#: [id number] DID#: [id number] CC: LUCIANA MUHAMMAD MD;*EndCC*
--- NOTE | 2018-12-30 20:09 | PN ---
Date/Time of Note Date/Time of Note DATE: 12/30/18 TIME: 20:06 Assessment/Plan VTE Prophylaxis Risk score (from Nsg)>0 risk: 1 SCD applied (from Nsg): Yes Pharmacological prophylaxis: heparin Lines/Catheters IV Catheter Type (from Nrsg): Mid Line Urinary Cath still in place: Yes Reason Cath still needed: other (indicate) (monitoring urine output ) Assessment/Plan Hospital Course 58 years old female with history of hypertension, diabetes who was recently admitted to [facility] for nausea vomiting diarrhea and chest pain. She was transferred to [facility] where a CT angiogram coronary was done. Patient returned to the emergency room at [facility] with increasing vomiting and weakness. She was found to be in acute renal failure. She required hemodialysis via a temporary catheter given hyperkalemia and severe acidosis. She was dialyses x 2 . She is having satisfactory urine output #Acute renal failure, in the setting of prerenal acidemia + contrast nephropathy - Monitor renal function and urine output off HD -Avoid nephrotoxic agents, renally dose medications - IVF per nephrology #Metabolic acidosis m resolved # Hyperkalemia , resolved #CAD , continue ASA, Statin , Imdur , BB #Hypertension - continue Metop and Norvasc #Diabetes on insulin, continue Lantus and sliding scale #Hyperlipidemia, continue Statin and fenofibrate # PPX: Heparin and Pepcid Problems: (1) ARF (acute renal failure) Status: Acute Qualifiers: Acute renal failure type: unspecified Qualified Codes: N17.9 - Acute kidney failure, unspecified (2) Diabetes mellitus (3) HTN (hypertension) Result Diagram: 12/30/1862712/30/18627 Results 24hrs Laboratory Tests Test 12/29/18 21:14 12/30/18 06:28 12/30/18 08:23 12/30/18 13:09 Bedside Glucose 129 244 H 160 White Blood Count 5.0 # Red Blood Count 3.38 L Hemoglobin 10.3 L Hematocrit 32.1 L Mean Corpuscular 95.0 Volume Mean Corpuscular 30.5 Hemoglobin Mean Corpuscular 32.1 Hemoglobin Concent Red Cell 12.9 Distribution Width Platelet Count 181 # Mean Platelet Volume 10.6 H Immature 0.400 Granulocytes % Neutrophils % 43.4 Lymphocytes % 43.2 Monocytes % 10.4 Eosinophils % 2.0 Basophils % 0.6 Nucleated Red Blood 0.0 Cells % Immature 0.020 Granulocytes # Neutrophils # 2.2 Lymphocytes # 2.2 Monocytes # 0.5 Eosinophils # 0.1 Basophils # 0.0 Nucleated Red Blood 0.0 Cells # Sodium Level 137 Potassium Level 3.7 Chloride Level 95 L Carbon Dioxide Level 34 H Anion Gap 8 # Blood Urea Nitrogen 35 #H Creatinine 3.60 #H Est Glomerular 13 L Filtrat Rate mL/min Glucose Level 172 Calcium Level 8.8 Phosphorus Level 4.1 Magnesium Level 1.8 Total Bilirubin 0.5 Direct Bilirubin 0.00 Indirect Bilirubin 0.5 Aspartate Amino 29 Transf (AST/SGOT) Alanine 20 Aminotransferase (AL T/SGPT) Alkaline Phosphatase 58 Total Protein 7.2 Albumin 3.5 Globulin 3.70 H Albumin/Globulin 0.94 Ratio Test 12/30/18 17:47 Bedside Glucose 131 Subjective 24 Hr Interval Summary Free Text/Dictation no fever, no chills, no CP , no SOB, Exam/Review of Systems Exam Vitals Vital Signs Date Temp Pulse Resp B/P (MAP) Pulse Ox O2 O2 Flow FiO2 Time Delivery Rate 12/30/18 70 16:00 12/30/18 98.0 20 121/57 98 Nasal 15:39 (78) Cannula 12/29/18 2.0 17:24 Intake and Output 12/29/18 12/29/18 12/30/18 1414:59 22:59 06:59 IntakeIntake Total 650 ml 1700 ml OutputOutput Total 2600 ml 2800 ml 1850 ml BalanceBalance -2600 ml -2150 ml -150 ml Exam Gen.: In no acute distress, pleasant and cooperative Eyes: Anicteric, conjunctiva normal, PERRLA, EOM intact HEENT: Normocephalic, atraumatic, hearing grossly intact, oral mucosa moist, no oral lesions Neck: Supple, no masses, trachea midline Cardiovascular: Regular rate and rhythm, no peripheral edema, no murmurs, no gallops, no rubs Respiratory: Clear to auscultation bilaterally, no use of accessory muscles of respiration, no wheezes, expiration not prolonged Extremities: No cyanosis, no edema, no calf tenderness, pulses bilaterally palpable, extremities warm and perfused Abdomen: Soft, not distended, nontender, bowel sounds present, no guarding, no rebound Neurological: Alert and oriented x3, speech normal, CN 2-12 no deficit, no motor or sensory deficit, coordination normal Heme: No acute bleeding, no ecchymosis or petechia Results Results 24hrs Laboratory Tests Test 12/29/18 21:14 12/30/18 06:28 12/30/18 08:23 12/30/18 13:09 Bedside Glucose 129 244 H 160 White Blood Count 5.0 # Red Blood Count 3.38 L Hemoglobin 10.3 L Hematocrit 32.1 L Mean Corpuscular 95.0 Volume Mean Corpuscular 30.5 Hemoglobin Mean Corpuscular 32.1 Hemoglobin Concent Red Cell 12.9 Distribution Width Platelet Count 181 # Mean Platelet Volume 10.6 H Immature 0.400 Granulocytes % Neutrophils % 43.4 Lymphocytes % 43.2 Monocytes % 10.4 Eosinophils % 2.0 Basophils % 0.6 Nucleated Red Blood 0.0 Cells % Immature 0.020 Granulocytes # Neutrophils # 2.2 Lymphocytes # 2.2 Monocytes # 0.5 Eosinophils # 0.1 Basophils # 0.0 Nucleated Red Blood 0.0 Cells # Sodium Level 137 Potassium Level 3.7 Chloride Level 95 L Carbon Dioxide Level 34 H Anion Gap 8 # Blood Urea Nitrogen 35 #H Creatinine 3.60 #H Est Glomerular 13 L Filtrat Rate mL/min Glucose Level 172 Calcium Level 8.8 Phosphorus Level 4.1 Magnesium Level 1.8 Total Bilirubin 0.5 Direct Bilirubin 0.00 Indirect Bilirubin 0.5 Aspartate Amino 29 Transf (AST/SGOT) Alanine 20 Aminotransferase (AL T/SGPT) Alkaline Phosphatase 58 Total Protein 7.2 Albumin 3.5 Globulin 3.70 H Albumin/Globulin 0.94 Ratio Test 12/30/18 17:47 Bedside Glucose 131 Medications Medication Current Medications Dextrose (D50w Syringe) ONCE PRN IV DECREASED GLUCOSE Last administered on 12/28/18at 10:49; Admin Dose 50 ML; Start 12/28/18 at 11:00 Acetaminophen (Tylenol Tab) 650 mg Q4H PRN PO pain Last administered on 12/29/18at 23:33; Admin Dose 650 MG; Start 12/28/18 at 11:30 Meclizine HCl (Antivert) 25 mg Q6H PRN PO vertigo; Start 12/28/18 at 11:30 Zolpidem Tartrate (Ambien) 5 mg HS MAY REPEAT X 1 PRN PO INSOMNIA; Start 12/28/18 at 21:00 Acarbose (Precose) 50 mg WITH MEALS PO Last administered on 12/30/18 17:59; Admin Dose 50 MG; Start 12/28/18 at 18:00 Amlodipine Besylate (Norvasc) 10 mg DAILY PO Last administered on 12/30/18 08:27; Admin Dose 10 MG; Start 12/28/18 at 13:00 Aspirin (Halfprin) 81 mg DAILY PO Last administered on 12/30/18 08:28; Admin Dose 81 MG; Start 12/28/18 at 13:00 Clonidine (Catapres) 0.1 mg Q8H PRN PO ELEVATED BLOOD PRESSURE; Start 12/28/18 at 11:30 Famotidine (Pepcid) 20 mg DAILY PO Last administered on 12/30/18 08:26; Admin Dose 20 MG; Start 12/28/18 at 13:00 Fenofibrate (Tricor) 145 mg DAILY PO Last administered on 12/30/18 08:26; Admin Dose 145 MG; Start 12/28/18 at 13:00 Isosorbide Mononitrate (Imdur) 30 mg DAILY PO Last administered on 12/30/18 08:27; Admin Dose 30 MG; Start 12/28/18 at 13:00 Levothyroxine Sodium (Synthroid) 75 mcg BEFORE BREAKFAST PO Last administered on 12/30/18 05:11; Admin Dose 75 MCG; Start 12/29/18 at 07:00 Meclizine HCl (Antivert) 25 mg BID PRN PO DIZZINESS; Start 12/28/18 at 11:30 Metoprolol Succinate (Toprol Xl) 100 mg BID PO Last administered on 12/30/18 08:28; Admin Dose 100 MG; Start 12/28/18 at 13:00 Oxybutynin Chloride (Ditropan Xl) 10 mg DAILY PO Last administered on 12/30/18 08:27; Admin Dose 10 MG; Start 12/28/18 at 13:00 Insulin Aspart (Novolog Insulin Pen) 16 unit WITH MEALS SC Last administered on 12/30/18 17:54; Admin Dose 16 UNIT; Start 12/28/18 at 18:00 Atorvastatin Calcium (Lipitor) 10 mg DAILY@21 PO Last administered on 12/29/18at 19:39; Admin Dose 10 MG; Start 12/28/18 at 21:00 Insulin Aspart (Novolog Insulin Pen) NOVOLOG *MODERATE* ALGORITHM WITH MEALS BEDTIME SC Last administered on 12/30/18at 13:15; Admin Dose 2 UNIT; Start 12/28/18 at 12:00 Ondansetron HCl (Zofran Inj) 4 mg Q4H PRN IV nausea; Start 12/28/18 at 11:30 Miscellaneous Information 1 ea NOTE XX ; Start 12/28/18 at 13:00 Glucose (Glutose) 15 gm Q15M PRN PO DECREASED GLUCOSE; Start 12/28/18 at 13:00 Glucose (Glutose) 22.5 gm Q15M PRN PO DECREASED GLUCOSE; Start 12/28/18 at 13:00 Dextrose (D50w Syringe) 25 ml Q15M PRN IV DECREASED GLUCOSE Last administered on 12/29/18at 19:38; Admin Dose 25 ML; Start 12/28/18 at 13:00 Dextrose (D50w Syringe) 50 ml Q15M PRN IV DECREASED GLUCOSE; Start 12/28/18 at 13:00 Glucagon (Glucagen) 1 mg Q15M PRN IM DECREASED GLUCOSE; Start 12/28/18 at 13:00 Glucose (Glutose) 15 gm Q15M PRN BUCCAL DECREASED GLUCOSE; Start 12/28/18 at 13:00 Albumin Human 100 ml @ 100 mls/hr WITH DIALYSIS PRN IV SBP <90 DURING DIALYSIS; Start 12/28/18 at 15:00 Sodium Chloride (NS) -To prime the dialy... DIRECTED FOR HD PRN IV HD; Start 12/28/18 at 15:00 Sodium Bicarbonate 100 meq/Sodium Chloride 1,000 ml @ 100 mls/hr Q10H IV Last administered on 12/30/18at 18:24; Admin Dose 100 MLS/HR; Start 12/28/18 at 15:00 Mannitol 50 ml @ 50 mls/5 min WITH DIALYSIS PRN IV DISEQUILIBRIUM SYNDROME PPX Last administered on 12/28/18at 21:04; Admin Dose 50 MLS/5 MIN; Start 12/28/18 at 19:30 Heparin Sodium (Porcine) (Heparin (1000 Units/ml)) 2,300 unit AFTER DIALYSIS CATHETER Last administered on 12/29/18at 13:13; Admin Dose 2,300 UNIT; Start 12/28/18 at 22:30 Heparin Sodium (Porcine) (Heparin (5000 Units/1ml)) 5,000 unit BID SC Last adm inistered on 12/30/18at 08:36; Admin Dose 5,000 UNIT; Start 12/29/18 at 21:00 GOLDY APARICIO MD Dec 30, 2018 20:09
[2018-12-30] MEDS: ATORVASTATIN 10 MG TAB PO SCH (22:16)
[2018-12-31] VITALS (12 sets, daily range): BP systolic 105–166; BP diastolic 59–73; PULSE 67–81; RESP 18–20
[2018-12-31] MEDS: ACETAMINOPHEN 325 MG TAB PO PRN ×2 (00:31→23:57)
[2018-12-31] MEDS: SODIUM BICARBONATE (IV ADD) 100 MEQ in SOD CHLORIDE 0.45% 900 ML IV SCH (03:00)
[2018-12-31] MEDS: LEVOTHYROXINE 75 MCG TAB PO SCH (06:16)
[2018-12-31] MEDS: INSULIN ASPART [NOVOLOG] 3 ML PEN SC SCH ×7 (08:21→21:00)
[2018-12-31] MEDS: ACARBOSE 50 MG TAB PO SCH ×3 (08:30→17:22)
--- NOTE | 2018-12-31 09:01 | PN ---
DATE: 12/31/2018 SUBJECTIVE: The patient is stable, no events overnight. No fevers, chills, nausea, vomiting. OBJECTIVE: VITAL SIGNS: Blood pressure is 166/73, respirations 20, pulse 69, temperature 99.1. HEENT: Head is normocephalic. NECK: Supple. HEART: Regular rate. LUNGS: Show diminished breath sounds at the base. ABDOMEN: Soft, nontender to palpation without rebound or guarding. EXTREMITIES: Negative for clubbing, cyanosis, no edema. DERMATOLOGIC: No rashes. MUSCULOSKELETAL: No joint effusion. NEUROLOGIC: No change in exam. MEDICATIONS: The patient's medications have been reviewed. LABORATORY DATA: Has been reviewed. ASSESSMENT AND PLAN: 1. Nonoliguric acute kidney injury of top of CKD stage III. Etiology of acute kidney injury is uncl ear, possibly due to acute tubular necrosis. The patient was initiated on urgent hemodialysis for so lute clearance and volume removal. The patient after 1 session of dialysis has shown adequate renal recovery. At this point, will monitor renal function for another 24 hours. If renal function remain s stable or continues to improve, will remove the Zeeshan catheter. 2. Metabolic acidosis, resolved. Will discontinue bicarbonate drip and monitor. 3. Hyperkalemia, secondary to acute kidney injury, resolved. 4. Mineral bone disorder. Monitor calcium and phosphorus levels. 5. Anemia. Monitor hemoglobin and hematocrit levels. 6. History of hypertension. Continue to monitor. 7. Coronary artery disease. Continue medical management. 8. Diabetes. Continue current insulin regimen. 9. Gastrointestinal and deep vein thrombosis prophylaxis. Dictated By: ISABEL OCHOA/GIUSEPPE Conf#: [id number] DID#: [id number]
[2018-12-31] MEDS: METOPROLOL (XL) 100 MG TAB PO SCH ×2 (09:53→21:53)
[2018-12-31] MEDS: ASPIRIN (EC) 81 MG TAB PO SCH (09:53)
[2018-12-31] MEDS: AMLODIPINE 10 MG TAB PO SCH (09:53)
[2018-12-31] MEDS: ISOSORBIDE MONONITRATE(SR)30 MG TAB PO SCH (09:54)
[2018-12-31] MEDS: FENOFIBRATE 145 MG TAB PO SCH (09:54)
[2018-12-31] MEDS: OXYBUTYNIN (XL) 5 MG TAB PO SCH (09:54)
[2018-12-31] MEDS: FAMOTIDINE 20 MG TAB PO SCH (09:54)
[2018-12-31] MEDS: HEPARIN 5,000 UNIT/1 ML VIAL SC SCH ×2 (10:00→21:51)
--- NOTE | 2018-12-31 20:36 | PN ---
Date/Time of Note Date/Time of Note DATE: 12/31/18 TIME: 20:34 Assessment/Plan VTE Prophylaxis Risk score (from Nsg)>0 risk: 2 SCD applied (from Nsg): Yes Pharmacological prophylaxis: heparin Lines/Catheters IV Catheter Type (from Nrsg): Mid Line Urinary Cath still in place: No Assessment/Plan Hospital Course 58 years old female with history of hypertension, diabetes who was recently admitted to [facility] for nausea vomiting diarrhea and chest pain. She was transferred to [facility] where a CT angiogram coronary was done. Patient returned to the emergency room at [facility] with increasing vomiting and weakness. She was found to be in acute renal failure. She required hemodialysis via a temporary catheter given hyperkalemia and severe acidosis. She was dialyses x 2 . She is having satisfactory urine output and creatinine is improving. #Acute renal failure, in the setting of prerenal acidemia + contrast nephropathy - Monitor renal function and urine output off HD - Avoid nephrotoxic agents, renally dose medications - IVF per nephrology #Metabolic acidosis resolved # Hyperkalemia , resolved #CAD , continue ASA, Statin , Imdur , BB #Hypertension - continue Metop and Norvasc #Diabetes on insulin, continue Lantus and sliding scale #Hyperlipidemia, continue Statin and fenofibrate # PPX: Heparin and Pepcid Result Diagram: 12/31/18 0530 12/31/18 0530 Results 24hrs Laboratory Tests Test 12/30/18 22:14 12/31/18 05:30 12/31/18 08:06 12/31/18 11:57 Bedside Glucose 130 249 H 251 H White Blood Count 5.1 Red Blood Count 3.33 L Hemoglobin 10.5 L Hematocrit 32.0 L Mean Corpuscular 96.1 Volume Mean Corpuscular 31.5 Hemoglobin Mean Corpuscular 32.8 Hemoglobin Concent Red Cell 12.4 Distribution Width Platelet Count 206 Mean Platelet Volume 10.8 H Immature 0.200 Granulocytes % Neutrophils % 49.3 Lymphocytes % 36.4 Monocytes % 11.0 Eosinophils % 2.3 Basophils % 0.8 Nucleated Red Blood 0.0 Cells % Immature 0.010 Granulocytes # Neutrophils # 2.5 Lymphocytes # 1.9 Monocytes # 0.6 Eosinophils # 0.1 Basophils # 0.0 Nucleated Red Blood 0.0 Cells # Sodium Level 139 Potassium Level 3.7 Chloride Level 99 Carbon Dioxide Level 30 Anion Gap 10 Blood Urea Nitrogen 33 H Creatinine 2.55 #H Est Glomerular 19 L Filtrat Rate mL/min Glucose Level 162 Calcium Level 9.3 Phosphorus Level 3.8 Magnesium Level 1.6 L Total Bilirubin 0.5 Direct Bilirubin 0.00 Indirect Bilirubin 0.5 Aspartate Amino 35 Transf (AST/SGOT) Alanine 20 Aminotransferase (AL T/SGPT) Alkaline Phosphatase 57 Total Protein 7.4 Albumin 3.7 Globulin 3.70 H Albumin/Globulin 1.00 Ratio Test 12/31/18 17:20 Bedside Glucose 146 Exam/Review of Systems Exam Vitals Vital Signs Date Temp Pulse Resp B/P (MAP) Pulse Ox O2 O2 Flow FiO2 Time Delivery Rate 12/31/18 98.2 81 18 141/67 95 19:15 (91) 12/31/18 Room Air 15:08 12/29/18 2.0 17:24 Intake and Output 12/30/18 12/30/18 12/31/18 1515:00 23:00 07:00 IntakeIntake Total 1720 ml 1600 ml OutputOutput Total 1450 ml BalanceBalance 270 ml 1600 ml Exam Gen.: In no acute distress, pleasant and cooperative Eyes: Anicteric, conjunctiva normal, PERRLA, EOM intact HEENT: Normocephalic, atraumatic, hearing grossly intact, oral mucosa moist, no oral lesions Neck: Supple, no masses, trachea midline Cardiovascular: Regular rate and rhythm, no peripheral edema, no murmurs, no gallops, no rubs Respiratory: Clear to auscultation bilaterally, no use of accessory muscles of respiration, no wheezes, expiration not prolonged Extremities: No cyanosis, no edema, no calf tenderness, pulses bilaterally palpable, extremities warm and perfused Abdomen: Soft, not distended, nontender, bowel sounds present, no guarding, no rebound Neurological: Alert and oriented x3, speech normal, CN 2-12 no deficit, no motor or sensory deficit, coordination normal Heme: No acute bleeding, no ecchymosis or petechia Results Results 24hrs Laboratory Tests Test 12/30/18 22:14 12/31/18 05:30 12/31/18 08:06 12/31/18 11:57 Bedside Glucose 130 249 H 251 H White Blood Count 5.1 Red Blood Count 3.33 L Hemoglobin 10.5 L Hematocrit 32.0 L Mean Corpuscular 96.1 Volume Mean Corpuscular 31.5 Hemoglobin Mean Corpuscular 32.8 Hemoglobin Concent Red Cell 12.4 Distribution Width Platelet Count 206 Mean Platelet Volume 10.8 H Immature 0.200 Granulocytes % Neutrophils % 49.3 Lymphocytes % 36.4 Monocytes % 11.0 Eosinophils % 2.3 Basophils % 0.8 Nucleated Red Blood 0.0 Cells % Immature 0.010 Granulocytes # Neutrophils # 2.5 Lymphocytes # 1.9 Monocytes # 0.6 Eosinophils # 0.1 Basophils # 0.0 Nucleated Red Blood 0.0 Cells # Sodium Level 139 Potassium Level 3.7 Chloride Level 99 Carbon Dioxide Level 30 Anion Gap 10 Blood Urea Nitrogen 33 H Creatinine 2.55 #H Est Glomerular 19 L Filtrat Rate mL/min Glucose Level 162 Calcium Level 9.3 Phosphorus Level 3.8 Magnesium Level 1.6 L Total Bilirubin 0.5 Direct Bilirubin 0.00 Indirect Bilirubin 0.5 Aspartate Amino 35 Transf (AST/SGOT) Alanine 20 Aminotransferase (AL T/SGPT) Alkaline Phosphatase 57 Total Protein 7.4 Albumin 3.7 Globulin 3.70 H Albumin/Globulin 1.00 Ratio Test 12/31/18 17:20 Bedside Glucose 146 Medications Medication Current Medications Dextrose (D50w Syringe) ONCE PRN IV DECREASED GLUCOSE Last administered on 12/28/18at 10:49; Admin Dose 50 ML; Start 12/28/18 at 11:00 Acetaminophen (Tylenol Tab) 650 mg Q4H PRN PO pain Last administered on 12/31/18at 00:31; Admin Dose 650 MG; Start 12/28/18 at 11:30 Meclizine HCl (Antivert) 25 mg Q6H PRN PO vertigo; Start 12/28/18 at 11:30 Zolpidem Tartrate (Ambien) 5 mg HS MAY REPEAT X 1 PRN PO INSOMNIA; Start 12/28/18 at 21:00 Acarbose (Precose) 50 mg WITH MEALS PO Last administered on 12/31/18at 17:22; A dmin Dose 50 MG; Start 12/28/18 at 18:00 Amlodipine Besylate (Norvasc) 10 mg DAILY PO Last administered on 12/31/18at 09:53; Admin Dose 10 MG; Start 12/28/18 at 13:00 Aspirin (Halfprin) 81 mg DAILY PO Last administered on 12/31/18 09:53; Admin Dose 81 MG; Start 12/28/18 at 13:00 Clonidine (Catapres) 0.1 mg Q8H PRN PO ELEVATED BLOOD PRESSURE; Start 12/28/18 at 11:30 Famotidine (Pepcid) 20 mg DAILY PO Last administered on 12/31/18 09:54; Admin Dose 20 MG; Start 12/28/18 at 13:00 Fenofibrate (Tricor) 145 mg DAILY PO Last administered on 12/31/18 09:54; Admin Dose 145 MG; Start 12/28/18 at 13:00 Isosorbide Mononitrate (Imdur) 30 mg DAILY PO Last administered on 12/31/18 09:54; Admin Dose 30 MG; Start 12/28/18 at 13:00 Levothyroxine Sodium (Synthroid) 75 mcg BEFORE BREAKFAST PO Last administered on 12/31/18 06:16; Admin Dose 75 MCG; Start 12/29/18 at 07:00 Meclizine HCl (Antivert) 25 mg BID PRN PO DIZZINESS; Start 12/28/18 at 11:30 Metoprolol Succinate (Toprol Xl) 100 mg BID PO Last administered on 12/31/18 09:53; Admin Dose 100 MG; Start 12/28/18 at 13:00 Oxybutynin Chloride (Ditropan Xl) 10 mg DAILY PO Last administered on 12/31/18 09:54; Admin Dose 10 MG; Start 12/28/18 at 13:00 Insulin Aspart (Novolog Insulin Pen) 16 unit WITH MEALS SC Last administered on 12/31/18 17:26; Admin Dose 16 UNIT; Start 12/28/18 at 18:00 Atorvastatin Calcium (Lipitor) 10 mg DAILY@21 PO Last administered on 12/30/18 22:16; Admin Dose 10 MG; Start 12/28/18 at 21:00 Insulin Aspart (Novolog Insulin Pen) NOVOLOG *MODERATE* ALGORITHM WITH MEALS BEDTIME SC Last administered on 12/31/18 12:03; Admin Dose 6 UNIT; Start 12/28/18 at 12:00 Ondansetron HCl (Zofran Inj) 4 mg Q4H PRN IV nausea; Start 12/28/18 at 11:30 Miscellaneous Information 1 ea NOTE XX ; Start 12/28/18 at 13:00 Glucose (Glutose) 15 gm Q15M PRN PO DECREASED GLUCOSE; Start 12/28/18 at 13:00 Glucose (Glutose) 22.5 gm Q15M PRN PO DECREASED GLUCOSE; Start 12/28/18 at 13:00 Dextrose (D50w Syringe) 25 ml Q15M PRN IV DECREASED GLUCOSE Last administered on 12/29/18at 19:38; Admin Dose 25 ML; Start 12/28/18 at 13:00 Dextrose (D50w Syringe) 50 ml Q15M PRN IV DECREASED GLUCOSE; Start 12/28/18 at 13:00 Glucagon (Glucagen) 1 mg Q15M PRN IM DECREASED GLUCOSE; Start 12/28/18 at 13:00 Glucose (Glutose) 15 gm Q15M PRN BUCCAL DECREASED GLUCOSE; Start 12/28/18 at 13:00 Albumin Human 100 ml @ 100 mls/hr WITH DIALYSIS PRN IV SBP <90 DURING DIALYSIS; Start 12/28/18 at 15:00 Mannitol 50 ml @ 50 mls/5 min WITH DIALYSIS PRN IV DISEQUILIBRIUM SYNDROME PPX Last administered on 12/28/18at 21:04; Admin Dose 50 MLS/5 MIN; Start 12/28/18 at 19:30 Heparin Sodium (Porcine) (Heparin (1000 Units/ml)) 2,300 unit AFTER DIALYSIS CATHETER Last administered on 12/29/18at 13:13; Admin Dose 2,300 UNIT; Start 12/28/18 at 22:30 Heparin Sodium (Porcine) (Heparin (5000 Units/1ml)) 5,000 unit BID SC Last administered on 12/31/18at 10:00; Admin Dose 5,000 UNIT; Start 12/29/18 at 21:00 GOLDY APARICIO MD Dec 31, 2018 20:36
[2018-12-31] MEDS: ATORVASTATIN 10 MG TAB PO SCH (21:52)
[2019-01-01] VITALS (11 sets, daily range): BP systolic 120–151; BP diastolic 58–67; PULSE 58–77; RESP 17–20
[2019-01-01] MEDS: LEVOTHYROXINE 75 MCG TAB PO SCH (06:10)
[2019-01-01] MEDS: INSULIN ASPART [NOVOLOG] 3 ML PEN SC SCH ×7 (08:03→20:42)
[2019-01-01] MEDS: FAMOTIDINE 20 MG TAB PO SCH (09:19)
[2019-01-01] MEDS: OXYBUTYNIN (XL) 5 MG TAB PO SCH (09:19)
[2019-01-01] MEDS: ISOSORBIDE MONONITRATE(SR)30 MG TAB PO SCH (09:19)
[2019-01-01] MEDS: AMLODIPINE 10 MG TAB PO SCH (09:19)
[2019-01-01] MEDS: FENOFIBRATE 145 MG TAB PO SCH (09:20)
[2019-01-01] MEDS: ASPIRIN (EC) 81 MG TAB PO SCH (09:20)
[2019-01-01] MEDS: ACARBOSE 50 MG TAB PO SCH ×3 (09:20→17:35)
[2019-01-01] MEDS: METOPROLOL (XL) 100 MG TAB PO SCH ×2 (09:21→20:42)
[2019-01-01] MEDS: HEPARIN 5,000 UNIT/1 ML VIAL SC SCH ×2 (09:27→20:49)
--- NOTE | 2019-01-01 12:56 | PN ---
Date/Time of Note Date/Time of Note DATE: 01/01/19 TIME: 12:54 Assessment/Plan VTE Prophylaxis Risk score (from Ns)>0 risk: 2 SCD applied (from Ns): Yes Pharmacological prophylaxis: heparin Lines/Catheters IV Catheter Type (from Nrsg): Mid Line Urinary Cath still in place: No Assessment/Plan Assessment/Plan 1. acute renal failure, resolving, await renal Re: hd catheter and pardo, a nticipate d.c hme when these are removed 2. dm Result Diagram: 01/01/1915 01/01/1915 Results 24hrs Laboratory Tests Test 12/31/18 17:20 12/31/18 21:09 01/01/19 05:15 01/01/19 07:51 Bedside Glucose 146 137 224 H White Blood Count 5.0 Red Blood Count 3.40 L Hemoglobin 10.8 L Hematocrit 32.6 L Mean Corpuscular 95.9 Volume Mean Corpuscular 31.8 Hemoglobin Mean Corpuscular 33.1 Hemoglobin Concent Red Cell 12.4 Distribution Width Platelet Count 207 Mean Platelet Volume 10.9 H Immature 0.200 Granulocytes % Neutrophils % 43.5 Lymphocytes % 44.4 Monocytes % 7.9 Eosinophils % 3.2 Basophils % 0.8 Nucleated Red Blood 0.0 Cells % Immature 0.010 Granulocytes # Neutrophils # 2.2 Lymphocytes # 2.2 Monocytes # 0.4 Eosinophils # 0.2 Basophils # 0.0 Nucleated Red Blood 0.0 Cells # Sodium Level 141 Potassium Level 3.8 Chloride Level 104 Carbon Dioxide Level 28 Anion Gap 9 Blood Urea Nitrogen 25 H Creatinine 1.80 H Est Glomerular 29 L Filtrat Rate mL/min Glucose Level 185 Calcium Level 9.7 Phosphorus Level 3.5 Magnesium Level 1.6 L Total Bilirubin 0.5 Direct Bilirubin 0.00 Indirect Bilirubin 0.5 Aspartate Amino 29 Transf (AST/SGOT) Alanine 15 Aminotransferase (AL T/SGPT) Alkaline Phosphatase 56 Total Protein 7.5 Albumin 3.7 Globulin 3.80 H Albumin/Globulin 0.97 Ratio Test 01/01/19 12:12 Bedside Glucose 197 Subjective 24 Hr Interval Summary Free Text/Dictation no complaints, eating well, ambulating, wants t go home Exam/Review of Systems Exam Vitals Vital Signs Date Temp Pulse Resp B/P (MAP) Pulse Ox O2 O2 Flow FiO2 Time Delivery Rate 01/01/19 98.0 61 20 120/58 98 Room Air 11:34 (78) 12/29/18 2.0 17:24 Intake and Output 12/31/18 12/31/18 01/01/19 1515:00 23:00 07:00 IntakeIntake Total 720 ml 700 ml OutputOutput Total 2850 ml 2750 ml BalanceBalance -2130 ml -2050 ml Exam na, ctab, soft nt Results Results 24hrs Laboratory Tests Test 12/31/18 17:20 12/31/18 21:09 01/01/19 05:15 01/01/19 07:51 Bedside Glucose 146 137 224 H White Blood Count 5.0 Red Blood Count 3.40 L Hemoglobin 10.8 L Hematocrit 32.6 L Mean Corpuscular 95.9 Volume Mean Corpuscular 31.8 Hemoglobin Mean Corpuscular 33.1 Hemoglobin Concent Red Cell 12.4 Distribution Width Platelet Count 207 Mean Platelet Volume 10.9 H Immature 0.200 Granulocytes % Neutrophils % 43.5 Lymphocytes % 44.4 Monocytes % 7.9 Eosinophils % 3.2 Basophils % 0.8 Nucleated Red Blood 0.0 Cells % Immature 0.010 Granulocytes # Neutrophils # 2.2 Lymphocytes # 2.2 Monocytes # 0.4 Eosinophils # 0.2 Basophils # 0.0 Nucleated Red Blood 0.0 Cells # Sodium Level 141 Potassium Level 3.8 Chloride Level 104 Carbon Dioxide Level 28 Anion Gap 9 Blood Urea Nitrogen 25 H Creatinine 1.80 H Est Glomerular 29 L Filtrat Rate mL/min Glucose Level 185 Calcium Level 9.7 Phosphorus Level 3.5 Magnesium Level 1.6 L Total Bilirubin 0.5 Direct Bilirubin 0.00 Indirect Bilirubin 0.5 Aspartate Amino 29 Transf (AST/SGOT) Alanine 15 Aminotransferase (AL T/SGPT) Alkaline Phosphatase 56 Total Protein 7.5 Albumin 3.7 Globulin 3.80 H Albumin/Globulin 0.97 Ratio Test 01/01/19 12:12 Bedside Glucose 197 Medications Medication Current Medications Dextrose (D50w Syringe) ONCE PRN IV DECREASED GLUCOSE Last administered on 12/28/18at 10:49; Admin Dose 50 ML; Start 12/28/18 at 11:00 Acetaminophen (Tylenol Tab) 650 mg Q4H PRN PO pain Last administered on 12/31/18at 23:57; Admin Dose 650 MG; Start 12/28/18 at 11:30 Meclizine HCl (Antivert) 25 mg Q6H PRN PO vertigo; Start 12/28/18 at 11:30 Zolpidem Tartrate (Ambien) 5 mg HS MAY REPEAT X 1 PRN PO INSOMNIA; Start 12/28/18 at 21:00 Acarbose (Precose) 50 mg WITH MEALS PO Last administered on 01/01/19at 12:19; Admin Dose 50 MG; Start 12/28/18 at 18:00 Amlodipine Besylate (Norvasc) 10 mg DAILY PO Last administered on 01/01/19 09:19; Admin Dose 10 MG; Start 12/28/18 at 13:00 Aspirin (Halfprin) 81 mg DAILY PO Last administered on 01/01/19 09:20; Admin Dose 81 MG; Start 12/28/18 at 13:00 Clonidine (Catapres) 0.1 mg Q8H PRN PO ELEVATED BLOOD PRESSURE; Start 12/28/18 at 11:30 Famotidine (Pepcid) 20 mg DAILY PO Last administered on 01/01/19 09:19; Admin Dose 20 MG; Start 12/28/18 at 13:00 Fenofibrate (Tricor) 145 mg DAILY PO Last administered on 01/01/19 09:20; Admin Dose 145 MG; Start 12/28/18 at 13:00 Isosorbide Mononitrate (Imdur) 30 mg DAILY PO Last administered on 01/01/19 09:19; Admin Dose 30 MG; Start 12/28/18 at 13:00 Levothyroxine Sodium (Synthroid) 75 mcg BEFORE BREAKFAST PO Last administered on 01/01/19at 06:10; Admin Dose 75 MCG; Start 12/29/18 at 07:00 Meclizine HCl (Antivert) 25 mg BID PRN PO DIZZINESS; Start 12/28/18 at 11:30 Metoprolol Succinate (Toprol Xl) 100 mg BID PO Last administered on 01/01/19 09:21; Admin Dose 100 MG; Start 12/28/18 at 13:00 Oxybutynin Chloride (Ditropan Xl) 10 mg DAILY PO Last administered on 01/01/19 09:19; Admin Dose 10 MG; Start 12/28/18 at 13:00 Insulin Aspart (Novolog Insulin Pen) 16 unit WITH MEALS SC Last administered on 01/01/19at 12:17; Admin Dose 16 UNIT; Start 12/28/18 at 18:00 Atorvastatin Calcium (Lipitor) 10 mg DAILY@21 PO Last administered on 12/31/18at 21:52; Admin Dose 10 MG; Start 12/28/18 at 21:00 Insulin Aspart (Novolog Insulin Pen) NOVOLOG *MODERATE* ALGORITHM WITH MEALS BEDTIME SC Last administered on 01/01/19at 12:17; Admin Dose 4 UNIT; Start 12/28/18 at 12:00 Ondansetron HCl (Zofran Inj) 4 mg Q4H PRN IV nausea; Start 12/28/18 at 11:30 Miscellaneous Information 1 ea NOTE XX ; Start 12/28/18 at 13:00 Glucose (Glutose) 15 gm Q15M PRN PO DECREASED GLUCOSE; Start 12/28/18 at 13:00 Glucose (Glutose) 22.5 gm Q15M PRN PO DECREASED GLUCOSE; Start 12/28/18 at 13:00 Dextrose (D50w Syringe) 25 ml Q15M PRN IV DECREASED GLUCOSE Last administered on 12/29/18at 19:38; Admin Dose 25 ML; Start 12/28/18 at 13:00 Dextrose (D50w Syringe) 50 ml Q15M PRN IV DECREASED GLUCOSE; Start 12/28/18 at 13:00 Glucagon (Glucagen) 1 mg Q15M PRN IM DECREASED GLUCOSE; Start 12/28/18 at 13:00 Glucose (Glutose) 15 gm Q15M PRN BUCCAL DECREASED GLUCOSE; Start 12/28/18 at 13:00 Albumin Human 100 ml @ 100 mls/hr WITH DIALYSIS PRN IV SBP <90 DURING DIALYSIS; Start 12/28/18 at 15:00 Mannitol 50 ml @ 50 mls/5 min WITH DIALYSIS PRN IV DISEQUILIBRIUM SYNDROME PPX Last administered on 12/28/18at 21:04; Admin Dose 50 MLS/5 MIN; Start 12/28/18 at 19:30 Heparin Sodium (Porcine) (Heparin (1000 Units/ml)) 2,300 unit AFTER DIALYSIS CATHETER Last administered on 12/29/18at 13:13; Admin Dose 2,300 UNIT; Start 12/28/18 at 22:30 Heparin Sodium (Porcine) (Heparin (5000 Units/1ml)) 5,000 unit BID SC Last administered on 01/01/19at 09:27; Admin Dose 5,000 UNIT; Start 12/29/18 at 21:00 YOESF MANCIA MD Jan 01, 2019 12:56
--- NOTE | 2019-01-01 13:40 | CONS ---
Assessment/Plan Assessment/Plan Hospital Course (Demo Recall) 1. Nonoliguric acute kidney injury of top of CKD stage III. Etiology of acute kidney injury is unclear, possibly due to acute tubular necrosis. The patient was initiated on urgent hemodialysis for solute clearance and volume removal. The patient after 1 session of dialysis has shown adequate renal recovery. last hd was on 12/30. continue to hold HD. will d/c catheter if it continues to im prove 2. Metabolic acidosis, resolved. Will discontinue bicarbonate drip and monitor. 3. Hyperkalemia, secondary to acute kidney injury, resolved. 4. Mineral bone disorder. Monitor calcium and phosphorus levels. 5. Anemia. Monitor hemoglobin and hematocrit levels. 6. History of hypertension. Continue to monitor. 7. Coronary artery disease. Continue medical management. 8. Diabetes. Continue current insulin regimen. 9. Gastrointestinal and deep vein thrombosis prophylaxis. Consultation Date/Type/Reason Admit Date/Time Dec 28, 2018 at 10:46 Initial Consult Date 12/28/18 Requesting Provider: ANABELLE GARCIA MD Date/Time of Note DATE: 01/01/19 TIME: 13:38 Exam/Review of Systems Exam Vitals Vital Signs Date Temp Pulse Resp B/P (MAP) Pulse Ox O2 O2 Flow FiO2 Time Delivery Rate 01/01/19 67 12:01 01/01/19 98.0 20 120/58 98 Room Air 11:34 (78) 12/29/18 2.0 17:24 Intake and Output 12/31/18 12/31/18 01/01/19 1515:00 23:00 07:00 IntakeIntake Total 720 ml 700 ml OutputOutput Total 2850 ml 2750 ml BalanceBalance -2130 ml -2050 ml Results Result Diagram: 01/01/19 0515 01/01/19 0515 Results 24hrs Laboratory Tests Test 12/31/18 17:20 12/31/18 21:09 01/01/19 05:15 01/01/19 07:51 Bedside Glucose 146 137 224 H White Blood Count 5.0 Red Blood Count 3.40 L Hemoglobin 10.8 L Hematocrit 32.6 L Mean Corpuscular 95.9 Volume Mean Corpuscular 31.8 Hemoglobin Mean Corpuscular 33.1 Hemoglobin Concent Red Cell 12.4 Distribution Width Platelet Count 207 Mean Platelet Volume 10.9 H Immature 0.200 Granulocytes % Neutrophils % 43.5 Lymphocytes % 44.4 Monocytes % 7.9 Eosinophils % 3.2 Basophils % 0.8 Nucleated Red Blood 0.0 Cells % Immature 0.010 Granulocytes # Neutrophils # 2.2 Lymphocytes # 2.2 Monocytes # 0.4 Eosinophils # 0.2 Basophils # 0.0 Nucleated Red Blood 0.0 Cells # Sodium Level 141 Potassium Level 3.8 Chloride Level 104 Carbon Dioxide Level 28 Anion Gap 9 Blood Urea Nitrogen 25 H Creatinine 1.80 H Est Glomerular 29 L Filtrat Rate mL/min Glucose Level 185 Calcium Level 9.7 Phosphorus Level 3.5 Magnesium Level 1.6 L Total Bilirubin 0.5 Direct Bilirubin 0.00 Indirect Bilirubin 0.5 Aspartate Amino 29 Transf (AST/SGOT) Alanine 15 Aminotransferase (AL T/SGPT) Alkaline Phosphatase 56 Total Protein 7.5 Albumin 3.7 Globulin 3.80 H Albumin/Globulin 0.97 Ratio Test 01/01/19 12:12 Bedside Glucose 197 Medications Medication Current Medications Dextrose (D50w Syringe) ONCE PRN IV DECREASED GLUCOSE Last administered on 12/28/18at 10:49; Admin Dose 50 ML; Start 12/28/18 at 11:00 Acetaminophen (Tylenol Tab) 650 mg Q4H PRN PO pain Last administered on 12/31/18at 23:57; Admin Dose 650 MG; Start 12/28/18 at 11:30 Meclizine HCl (Antivert) 25 mg Q6H PRN PO vertigo; Start 12/28/18 at 11:30 Zolpidem Tartrate (Ambien) 5 mg HS MAY REPEAT X 1 PRN PO INSOMNIA; Start 12/28/18 at 21:00 Acarbose (Precose) 50 mg WITH MEALS PO Last administered on 01/01/19at 12:19; Admin Dose 50 MG; Start 12/28/18 at 18:00 Amlodipine Besylate (Norvasc) 10 mg DAILY PO Last administered on 01/01/19at 09:19; Admin Dose 10 MG; Start 12/28/18 at 13:00 Aspirin (Halfprin) 81 mg DAILY PO Last administered on 01/01/19at 09:20; Admin Dose 81 MG; Start 12/28/18 at 13:00 Clonidine (Catapres) 0.1 mg Q8H PRN PO ELEVATED BLOOD PRESSURE; Start 12/28/18 at 11:30 Famotidine (Pepcid) 20 mg DAILY PO Last administered on 01/01/19 09:19; Admin Dose 20 MG; Start 12/28/18 at 13:00 Fenofibrate (Tricor) 145 mg DAILY PO Last administered on 01/01/19 09:20; Admin Dose 145 MG; Start 12/28/18 at 13:00 Isosorbide Mononitrate (Imdur) 30 mg DAILY PO Last administered on 01/01/19 09:19; Admin Dose 30 MG; Start 12/28/18 at 13:00 Levothyroxine Sodium (Synthroid) 75 mcg BEFORE BREAKFAST PO Last administered on 01/01/19at 06:10; Admin Dose 75 MCG; Start 12/29/18 at 07:00 Meclizine HCl (Antivert) 25 mg BID PRN PO DIZZINESS; Start 12/28/18 at 11:30 Metoprolol Succinate (Toprol Xl) 100 mg BID PO Last administered on 01/01/19 09:21; Admin Dose 100 MG; Start 12/28/18 at 13:00 Oxybutynin Chloride (Ditropan Xl) 10 mg DAILY PO Last administered on 01/01/19 09:19; Admin Dose 10 MG; Start 12/28/18 at 13:00 Insulin Aspart (Novolog Insulin Pen) 16 unit WITH MEALS SC Last administered on 01/01/19 12:17; Admin Dose 16 UNIT; Start 12/28/18 at 18:00 Atorvastatin Calcium (Lipitor) 10 mg DAILY@21 PO Last administered on 12/31/18at 21:52; Admin Dose 10 MG; Start 12/28/18 at 21:00 Insulin Aspart (Novolog Insulin Pen) NOVOLOG *MODERATE* ALGORITHM WITH MEALS BEDTIME SC Last administered on 01/01/19 12:17; Admin Dose 4 UNIT; Start 12/28/18 at 12:00 Ondansetron HCl (Zofran Inj) 4 mg Q4H PRN IV nausea; Start 12/28/18 at 11:30 Miscellaneous Information 1 ea NOTE XX ; Start 12/28/18 at 13:00 Glucose (Glutose) 15 gm Q15M PRN PO DECREASED GLUCOSE; Start 12/28/18 at 13:00 Glucose (Glutose) 22.5 gm Q15M PRN PO DECREASED GLUCOSE; Start 12/28/18 at 13:00 Dextrose (D50w Syringe) 25 ml Q15M PRN IV DECREASED GLUCOSE Last administered on 12/29/18at 19:38; Admin Dose 25 ML; Start 12/28/18 at 13:00 Dextrose (D50w Syringe) 50 ml Q15M PRN IV DECREASED GLUCOSE; Start 12/28/18 at 13:00 Glucagon (Glucagen) 1 mg Q15M PRN IM DECREASED GLUCOSE; Start 12/28/18 at 13:00 Glucose (Glutose) 15 gm Q15M PRN BUCCAL DECREASED GLUCOSE; Start 12/28/18 at 13:00 Albumin Human 100 ml @ 100 mls/hr WITH DIALYSIS PRN IV SBP <90 DURING DIALYSIS; Start 12/28/18 at 15:00 Mannitol 50 ml @ 50 mls/5 min WITH DIALYSIS PRN IV DISEQUILIBRIUM SYNDROME PPX Last administered on 12/28/18at 21:04; Admin Dose 50 MLS/5 MIN; Start 12/28/18 at 19:30 Heparin Sodium (Porcine) (Heparin (1000 Units/ml)) 2,300 unit AFTER DIALYSIS CATHETER Last administered on 12/29/18at 13:13; Admin Dose 2,300 UNIT; Start 12/28/18 at 22:30 Heparin Sodium (Porcine) (Heparin (5000 Units/1ml)) 5,000 unit BID SC Last administered on 01/01/19at 09:27; Admin Dose 5,000 UNIT; Start 12/29/18 at 21:00 KYLIE KABA MD Jan 01, 2019 13:40
[2019-01-01] MEDS: ATORVASTATIN 10 MG TAB PO SCH (20:42)
[2019-01-01] MEDS: ACETAMINOPHEN 325 MG TAB PO PRN (23:22)
[2019-01-02] VITALS (12 sets, daily range): BP systolic 109–148; BP diastolic 56–70; PULSE 59–74; RESP 16–18
[2019-01-02] MEDS: LEVOTHYROXINE 75 MCG TAB PO SCH (06:57)
[2019-01-02] MEDS: INSULIN ASPART [NOVOLOG] 3 ML PEN SC SCH ×7 (07:47→21:00)
[2019-01-02] MEDS: ACARBOSE 50 MG TAB PO SCH ×3 (07:51→17:24)
[2019-01-02] MEDS: ASPIRIN (EC) 81 MG TAB PO SCH (08:30)
[2019-01-02] MEDS: OXYBUTYNIN (XL) 5 MG TAB PO SCH (08:30)
[2019-01-02] MEDS: FAMOTIDINE 20 MG TAB PO SCH (08:31)
[2019-01-02] MEDS: FENOFIBRATE 145 MG TAB PO SCH (08:31)
[2019-01-02] MEDS: METOPROLOL (XL) 100 MG TAB PO SCH ×2 (08:31→21:04)
[2019-01-02] MEDS: ISOSORBIDE MONONITRATE(SR)30 MG TAB PO SCH (08:31)
[2019-01-02] MEDS: AMLODIPINE 10 MG TAB PO SCH (08:31)
[2019-01-02] MEDS: HEPARIN 5,000 UNIT/1 ML VIAL SC SCH ×2 (08:36→21:09)
--- NOTE | 2019-01-02 12:22 | PN ---
Date/Time of Note Date/Time of Note DATE: 01/02/19 TIME: 12:20 Assessment/Plan VTE Prophylaxis Risk score (from Nsg)>0 risk: 1 SCD applied (from Ns): No SCD contraindicated: low risk/ambulating Pharmacological prophylaxis: LMWH Lines/Catheters IV Catheter Type (from Nrsg): Central Line Central line still needed: Yes Urinary Cath still in place: No Reason Cath still needed: other (indicate) Assessment/Plan Assessment/Plan 1. acute renal failure, s/p HD X1, await renal d/ cof paige current creat appears to be reaching plateau, unclear baseline Result Diagram: 01/02/19 0507 01/02/19 0507 Results 24hrs Laboratory Tests Test 01/01/19 17:23 01/01/19 20:40 01/02/19 05:07 01/02/19 07:39 Bedside Glucose 164 128 224 H White Blood Count 5.6 Red Blood Count 3.32 L Hemoglobin 10.5 L Hematocrit 32.5 L Mean Corpuscular 97.9 Volume Mean Corpuscular 31.6 Hemoglobin Mean Corpuscular 32.3 Hemoglobin Concent Red Cell 12.3 Distribution Width Platelet Count 211 Mean Platelet Volume 10.7 H Immature 0.400 Granulocytes % Neutrophils % 46.3 Lymphocytes % 40.0 Monocytes % 8.0 Eosinophils % 4.6 Basophils % 0.7 Nucleated Red Blood 0.0 Cells % Immature 0.020 Granulocytes # Neutrophils # 2.6 Lymphocytes # 2.3 Monocytes # 0.5 Eosinophils # 0.3 Basophils # 0.0 Nucleated Red Blood 0.0 Cells # Sodium Level 140 Potassium Level 4.0 Chloride Level 106 Carbon Dioxide Level 27 Anion Gap 7 Blood Urea Nitrogen 24 H Creatinine 1.57 H Est Glomerular 34 L Filtrat Rate mL/min Glucose Level 200 Calcium Level 9.6 Phosphorus Level 3.7 Magnesium Level 1.7 Total Bilirubin 0.3 Direct Bilirubin 0.00 Indirect Bilirubin 0.3 Aspartate Amino 27 Transf (AST/SGOT) Alanine 17 Aminotransferase (AL T/SGPT) Alkaline Phosphatase 52 Total Protein 7.3 Albumin 3.5 Globulin 3.80 H Albumin/Globulin 0.92 Ratio Test 01/02/19 11:50 Bedside Glucose 277 H Subjective 24 Hr Interval Summary Free Text/Dictation no complaints, no pain, eating well Exam/Review of Systems Exam Vitals Vital Signs Date Temp Pulse Resp B/P (MAP) Pulse Ox O2 O2 Flow FiO2 Time Delivery Rate 01/02/19 98.2 62 18 122/58 98 Room Air 11:35 (79) 12/29/18 2.0 17:24 Intake and Output 01/01/19 01/01/19 01/02/19 1515:00 23:00 07:00 IntakeIntake Total 2000 ml 500 ml OutputOutput Total 1400 ml 1650 ml BalanceBalance 600 ml -1150 ml Exam nad, soft nt ,ctab Results Results 24hrs Laboratory Tests Test 01/01/19 17:23 01/01/19 20:40 01/02/19 05:07 01/02/19 07:39 Bedside Glucose 164 128 224 H White Blood Count 5.6 Red Blood Count 3.32 L Hemoglobin 10.5 L Hematocrit 32.5 L Mean Corpuscular 97.9 Volume Mean Corpuscular 31.6 Hemoglobin Mean Corpuscular 32.3 Hemoglobin Concent Red Cell 12.3 Distribution Width Platelet Count 211 Mean Platelet Volume 10.7 H Immature 0.400 Granulocytes % Neutrophils % 46.3 Lymphocytes % 40.0 Monocytes % 8.0 Eosinophils % 4.6 Basophils % 0.7 Nucleated Red Blood 0.0 Cells % Immature 0.020 Granulocytes # Neutrophils # 2.6 Lymphocytes # 2.3 Monocytes # 0.5 Eosinophils # 0.3 Basophils # 0.0 Nucleated Red Blood 0.0 Cells # Sodium Level 140 Potassium Level 4.0 Chloride Level 106 Carbon Dioxide Level 27 Anion Gap 7 Blood Urea Nitrogen 24 H Creatinine 1.57 H Est Glomerular 34 L Filtrat Rate mL/min Glucose Level 200 Calcium Level 9.6 Phosphorus Level 3.7 Magnesium Level 1.7 Total Bilirubin 0.3 Direct Bilirubin 0.00 Indirect Bilirubin 0.3 Aspartate Amino 27 Transf (AST/SGOT) Alanine 17 Aminotransferase (AL T/SGPT) Alkaline Phosphatase 52 Total Protein 7.3 Albumin 3.5 Globulin 3.80 H Albumin/Globulin 0.92 Ratio Test 01/02/19 11:50 Bedside Glucose 277 H Medications Medication Current Medications Dextrose (D50w Syringe) ONCE PRN IV DECREASED GLUCOSE Last administered on 12/28/18at 10:49; Admin Dose 50 ML; Start 12/28/18 at 11:00 Acetaminophen (Tylenol Tab) 650 mg Q4H PRN PO pain Last administered on 9at 23:22; Admin Dose 650 MG; Start 12/28/18 at 11:30 Meclizine HCl (Antivert) 25 mg Q6H PRN PO vertigo; Start 12/28/18 at 11:30 Zolpidem Tartrate (Ambien) 5 mg HS MAY REPEAT X 1 PRN PO INSOMNIA; Start 12/28/18 at 21:00 Acarbose (Precose) 50 mg WITH MEALS PO Last administered on 01/02/19 11:53; Admin Dose 50 MG; Start 12/28/18 at 18:00 Amlodipine Besylate (Norvasc) 10 mg DAILY PO Last administered on 01/02/19 08:31; Admin Dose 10 MG; Start 12/28/18 at 13:00 Aspirin (Halfprin) 81 mg DAILY PO Last administered on 01/02/19 08:30; Admin Dose 81 MG; Start 12/28/18 at 13:00 Clonidine (Catapres) 0.1 mg Q8H PRN PO ELEVATED BLOOD PRESSURE; Start 12/28/18 at 11:30 Famotidine (Pepcid) 20 mg DAILY PO Last administered on 01/02/19 08:31; Admin Dose 20 MG; Start 12/28/18 at 13:00 Fenofibrate (Tricor) 145 mg DAILY PO Last administered on 01/02/19 08:31; Admin Dose 145 MG; Start 12/28/18 at 13:00 Isosorbide Mononitrate (Imdur) 30 mg DAILY PO Last administered on 01/02/19 08:31; Admin Dose 30 MG; Start 12/28/18 at 13:00 Levothyroxine Sodium (Synthroid) 75 mcg BEFORE BREAKFAST PO Last administered on 01/02/19 06:57; Admin Dose 75 MCG; Start 12/29/18 at 07:00 Meclizine HCl (Antivert) 25 mg BID PRN PO DIZZINESS; Start 12/28/18 at 11:30 Metoprolol Succinate (Toprol Xl) 100 mg BID PO Last administered on 01/02/19 08:31; Admin Dose 100 MG; Start 12/28/18 at 13:00 Oxybutynin Chloride (Ditropan Xl) 10 mg DAILY PO Last administered on 01/02/19 08:30; Admin Dose 10 MG; Start 12/28/18 at 13:00 Insulin Aspart (Novolog Insulin Pen) 16 unit WITH MEALS SC Last administered on 01/02/19at 11:57; Admin Dose 16 UNIT; Start 12/28/18 at 18:00 Atorvastatin Calcium (Lipitor) 10 mg DAILY@21 PO Last administered on 01/01/19at 20:42; Admin Dose 10 MG; Start 12/28/18 at 21:00 Insulin Aspart (Novolog Insulin Pen) NOVOLOG *MODERATE* ALGORITHM WITH MEALS BEDTIME SC Last administered on 01/02/19at 11:57; Admin Dose 8 UNIT; Start 12/28/18 at 12:00 Ondansetron HCl (Zofran Inj) 4 mg Q4H PRN IV nausea; Start 12/28/18 at 11:30 Miscellaneous Information 1 ea NOTE XX ; Start 12/28/18 at 13:00 Glucose (Glutose) 15 gm Q15M PRN PO DECREASED GLUCOSE; Start 12/28/18 at 13:00 Glucose (Glutose) 22.5 gm Q15M PRN PO DECREASED GLUCOSE; Start 12/28/18 at 13:00 Dextrose (D50w Syringe) 25 ml Q15M PRN IV DECREASED GLUCOSE Last administered on 12/29/18at 19:38; Admin Dose 25 ML; Start 12/28/18 at 13:00 Dextrose (D50w Syringe) 50 ml Q15M PRN IV DECREASED GLUCOSE; Start 12/28/18 at 13:00 Glucagon (Glucagen) 1 mg Q15M PRN IM DECREASED GLUCOSE; Start 12/28/18 at 13:00 Glucose (Glutose) 15 gm Q15M PRN BUCCAL DECREASED GLUCOSE; Start 12/28/18 at 13:00 Albumin Human 100 ml @ 100 mls/hr WITH DIALYSIS PRN IV SBP <90 DURING DIALYSIS; Start 12/28/18 at 15:00 Mannitol 50 ml @ 50 mls/5 min WITH DIALYSIS PRN IV DISEQUILIBRIUM SYNDROME PPX Last administered on 12/28/18at 21:04; Admin Dose 50 MLS/5 MIN; Start 12/28/18 at 19:30 Heparin Sodium (Porcine) (Heparin (1000 Units/ml)) 2,300 unit AFTER DIALYSIS CATHETER Last administered on 12/29/18at 13:13; Admin Dose 2,300 UNIT; Start 12/28/18 at 22:30 Heparin Sodium (Porcine) (Heparin (5000 Units/1ml)) 5,000 unit BID SC Last administered on 01/02/19at 08:36; Admin Dose 5,000 UNIT; Start 12/29/18 at 21:00 YOSEF MANCIA MD Jan 02, 2019 12:22
--- NOTE | 2019-01-02 13:40 | CONS ---
Assessment/Plan Assessment/Plan Hospital Course (Demo Recall) 1. Nonoliguric acute kidney injury of top of CKD stage III. Etiology of acute kidney injury is unclear, possibly due to acute tubular necrosis. The patient was initiated on urgent hemodialysis for solute clearance and volume removal. The patient after 1 session of dialysis has shown adequate renal recovery. last hd was on 12/30. continue to hold HD. will d/c catheter 2. Metabolic acidosis, resolved. Will discontinue bicarbonate drip and monitor. 3. Hyperkalemia, secondary to acute kidney injury, resolved. 4. Mineral bone disorder. Monitor calcium and phosphorus levels. 5. Anemia. Monitor hemoglobin and hematocrit levels. 6. History of hypertension. Continue to monitor. 7. Coronary artery disease. Continue medical management. 8. Diabetes. Continue current insulin regimen. 9. Gastrointestinal and deep vein thrombosis prophylaxis. Consultation Date/Type/Reason Admit Date/Time Dec 28, 2018 at 10:46 Initial Consult Date 12/28/18 Requesting Provider: ANABELLE GARCIA MD Date/Time of Note DATE: 01/02/19 TIME: 13:39 24 HR Interval Summary Free Text/Dictation denies shortness of breath adequate urine output d/w rn gen nad cv rrr pulm ctab abd soft, nd ,nt +bs ext; no edema Exam/Review of Systems Exam Vitals Vital Signs Date Temp Pulse Resp B/P (MAP) Pulse Ox O2 O2 Flow FiO2 Time Delivery Rate 01/02/19 73 12:01 01/02/19 98.2 18 122/58 98 Room Air 11:35 (79) 12/29/18 2.0 17:24 Intake and Output 01/01/19 01/01/19 01/02/19 1515:00 23:00 07:00 IntakeIntake Total 2000 ml 500 ml OutputOutput Total 1400 ml 1650 ml BalanceBalance 600 ml -1150 ml Results Result Diagram: 01/02/19 0507 01/02/19 0507 Results 24hrs Laboratory Tests Test 01/01/19 17:23 01/01/19 20:40 01/02/19 05:07 01/02/19 07:39 Bedside Glucose 164 128 224 H White Blood Count 5.6 Red Blood Count 3.32 L Hemoglobin 10.5 L Hematocrit 32.5 L Mean Corpuscular 97.9 Volume Mean Corpuscular 31.6 Hemoglobin Mean Corpuscular 32.3 Hemoglobin Concent Red Cell 12.3 Distribution Width Platelet Count 211 Mean Platelet Volume 10.7 H Immature 0.400 Granulocytes % Neutrophils % 46.3 Lymphocytes % 40.0 Monocytes % 8.0 Eosinophils % 4.6 Basophils % 0.7 Nucleated Red Blood 0.0 Cells % Immature 0.020 Granulocytes # Neutrophils # 2.6 Lymphocytes # 2.3 Monocytes # 0.5 Eosinophils # 0.3 Basophils # 0.0 Nucleated Red Blood 0.0 Cells # Sodium Level 140 Potassium Level 4.0 Chloride Level 106 Carbon Dioxide Level 27 Anion Gap 7 Blood Urea Nitrogen 24 H Creatinine 1.57 H Est Glomerular 34 L Filtrat Rate mL/min Glucose Level 200 Calcium Level 9.6 Phosphorus Level 3.7 Magnesium Level 1.7 Total Bilirubin 0.3 Direct Bilirubin 0.00 Indirect Bilirubin 0.3 Aspartate Amino 27 Transf (AST/SGOT) Alanine 17 Aminotransferase (AL T/SGPT) Alkaline Phosphatase 52 Total Protein 7.3 Albumin 3.5 Globulin 3.80 H Albumin/Globulin 0.92 Ratio Test 01/02/19 11:50 Bedside Glucose 277 H Medications Medication Current Medications Dextrose (D50w Syringe) ONCE PRN IV DECREASED GLUCOSE Last administered on 12/28/18at 10:49; Admin Dose 50 ML; Start 12/28/18 at 11:00 Acetaminophen (Tylenol Tab) 650 mg Q4H PRN PO pain Last administered on 01/01/19at 23:22; Admin Dose 650 MG; Start 12/28/18 at 11:30 Meclizine HCl (Antivert) 25 mg Q6H PRN PO vertigo; Start 12/28/18 at 11:30 Zolpidem Tartrate (Ambien) 5 mg HS MAY REPEAT X 1 PRN PO INSOMNIA; Start 12/28/18 at 21:00 Acarbose (Precose) 50 mg WITH MEALS PO Last administered on 01/02/19at 11:53; Admin Dose 50 MG; Start 12/28/18 at 18:00 Amlodipine Besylate (Norvasc) 10 mg DAILY PO Last administered on 01/02/19 08:31; Admin Dose 10 MG; Start 12/28/18 at 13:00 Aspirin (Halfprin) 81 mg DAILY PO Last administered on 01/02/19at 08:30; Admin Dose 81 MG; Start 12/28/18 at 13:00 Clonidine (Catapres) 0.1 mg Q8H PRN PO ELEVATED BLOOD PRESSURE; Start 12/28/18 at 11:30 Famotidine (Pepcid) 20 mg DAILY PO Last administered on 01/02/19 08:31; Admin Dose 20 MG; Start 12/28/18 at 13:00 Fenofibrate (Tricor) 145 mg DAILY PO Last administered on 01/02/19 08:31; Admin Dose 145 MG; Start 12/28/18 at 13:00 Isosorbide Mononitrate (Imdur) 30 mg DAILY PO Last administered on 01/02/19 08:31; Admin Dose 30 MG; Start 12/28/18 at 13:00 Levothyroxine Sodium (Synthroid) 75 mcg BEFORE BREAKFAST PO Last administered on 01/02/19 06:57; Admin Dose 75 MCG; Start 12/29/18 at 07:00 Meclizine HCl (Antivert) 25 mg BID PRN PO DIZZINESS; Start 12/28/18 at 11:30 Metoprolol Succinate (Toprol Xl) 100 mg BID PO Last administered on 01/02/19 08:31; Admin Dose 100 MG; Start 12/28/18 at 13:00 Oxybutynin Chloride (Ditropan Xl) 10 mg DAILY PO Last administered on 01/02/19 08:30; Admin Dose 10 MG; Start 12/28/18 at 13:00 Insulin Aspart (Novolog Insulin Pen) 16 unit WITH MEALS SC Last administered on 01/02/19 11:57; Admin Dose 16 UNIT; Start 12/28/18 at 18:00 Atorvastatin Calcium (Lipitor) 10 mg DAILY@21 PO Last administered on 01/01/19at 20:42; Admin Dose 10 MG; Start 12/28/18 at 21:00 Insulin Aspart (Novolog Insulin Pen) NOVOLOG *MODERATE* ALGORITHM WITH MEALS BEDTIME SC Last administered on 01/02/19 11:57; Admin Dose 8 UNIT; Start 12/28/18 at 12:00 Ondansetron HCl (Zofran Inj) 4 mg Q4H PRN IV nausea; Start 12/28/18 at 11:30 Miscellaneous Information 1 ea NOTE XX ; Start 12/28/18 at 13:00 Glucose (Glutose) 15 gm Q15M PRN PO DECREASED GLUCOSE; Start 12/28/18 at 13:00 Glucose (Glutose) 22.5 gm Q15M PRN PO DECREASED GLUCOSE; Start 12/28/18 at 13:00 Dextrose (D50w Syringe) 25 ml Q15M PRN IV DECREASED GLUCOSE Last administered on 12/29/18at 19:38; Admin Dose 25 ML; Start 12/28/18 at 13:00 Dextrose (D50w Syringe) 50 ml Q15M PRN IV DECREASED GLUCOSE; Start 12/28/18 at 13:00 Glucagon (Glucagen) 1 mg Q15M PRN IM DECREASED GLUCOSE; Start 12/28/18 at 13:00 Glucose (Glutose) 15 gm Q15M PRN BUCCAL DECREASED GLUCOSE; Start 12/28/18 at 13:00 Albumin Human 100 ml @ 100 mls/hr WITH DIALYSIS PRN IV SBP <90 DURING DIALYSIS; Start 12/28/18 at 15:00 Mannitol 50 ml @ 50 mls/5 min WITH DIALYSIS PRN IV DISEQUILIBRIUM SYNDROME PPX Last administered on 12/28/18at 21:04; Admin Dose 50 MLS/5 MIN; Start 12/28/18 at 19:30 Heparin Sodium (Porcine) (Heparin (1000 Units/ml)) 2,300 unit AFTER DIALYSIS CATHETER Last administered on 12/29/18 13:13; Admin Dose 2,300 UNIT; Start 12/28/18 at 22:30 Heparin Sodium (Porcine) (Heparin (5000 Units/1ml)) 5,000 unit BID SC Last administered on 01/02/19 08:36; Admin Dose 5,000 UNIT; Start 12/29/18 at 21:00 KYLIE KABA MD Jan 02, 2019 13:40
[2019-01-02] MEDS: ATORVASTATIN 10 MG TAB PO SCH (21:03)
[2019-01-02] MEDS: ACETAMINOPHEN 325 MG TAB PO PRN (21:12)
[2019-01-03] VITALS: PULSE 60
[2019-01-03 00:46] VITALS: BP 118/56; PULSE 66; RESP 18
[2019-01-03 04:00] VITALS: PULSE 55
[2019-01-03 04:23] VITALS: BP 125/68; PULSE 78; RESP 18
[2019-01-03] MEDS: LEVOTHYROXINE 75 MCG TAB PO SCH (06:17)
[2019-01-03 07:09] VITALS: BP 149/67; PULSE 57; RESP 22
[2019-01-03] MEDS: ACARBOSE 50 MG TAB PO SCH (07:44)
[2019-01-03] MEDS: INSULIN ASPART [NOVOLOG] 3 ML PEN SC SCH ×2 (07:55)
[2019-01-03 08:01] VITALS: PULSE 64
[2019-01-03] MEDS: OXYBUTYNIN (XL) 5 MG TAB PO SCH (08:39)
[2019-01-03] MEDS: METOPROLOL (XL) 100 MG TAB PO SCH (08:39)
[2019-01-03] MEDS: ASPIRIN (EC) 81 MG TAB PO SCH (08:39)
[2019-01-03] MEDS: ISOSORBIDE MONONITRATE(SR)30 MG TAB PO SCH (08:39)
[2019-01-03] MEDS: AMLODIPINE 10 MG TAB PO SCH (08:39)
[2019-01-03] MEDS: FAMOTIDINE 20 MG TAB PO SCH (08:40)
[2019-01-03] MEDS: FENOFIBRATE 145 MG TAB PO SCH (08:40)
[2019-01-03] MEDS: HEPARIN 5,000 UNIT/1 ML VIAL SC SCH (08:51)
--- NOTE | 2019-01-03 09:13 | PN ---
DATE: 01/03/2019 SUBJECTIVE: The patient is stable. The patient's Zeeshan catheter was removed. No other events not ed. OBJECTIVE: VITAL SIGNS: Blood pressure is 149/67, pulse 57, temperature 98.0. HEENT: Head is normocephalic. NECK: Supple. HEART: Regular rate. LUNGS: Show diminished breath sounds at the base. ABDOMEN: Soft, nontender to palpation without rebound or guarding. EXTREMITIES: Negative for clubbing, cyanosis, no edema. DERMATOLOGIC: No rashes. MUSCULOSKELETAL: No joint effusion. NEUROLOGIC: No change in exam. MEDICATIONS: Reviewed. LABORATORY DATA: Reviewed. ASSESSMENT AND PLAN: 1. Nonoliguric acute kidney injury on top of chronic kidney disease stage III. Etiology of acute ki dney injury is unclear, possibly acute tubular necrosis. The patient is status post hemodialysis x1. The patient is showing excellent renal recovery. The patient's Zeeshan catheter was removed. No f urther need for dialysis. 2. Metabolic acidosis, resolved. Continue to monitor. 3. Hyperkalemia, improved. 4. Mineral bone disorder, monitor calcium and phosphorus levels. 5. Anemia. Monitor hemoglobin and hematocrit levels. 6. History of hypertension. Continue to monitor. 7. Coronary artery disease. Continue medical management. 8. Diabetes. Continue current insulin regimen. 9. Gastrointestinal and deep vein thrombosis prophylaxis. Dictated By: ISABEL OCHOA/NTS Conf#: [id number] DID#: [id number] CC: LUCIANA MUHAMMAD MD;*EndCC*
--- NOTE | 2019-01-03 10:40 | PDOCDIS ---
Discharge Instructions CONDITION [id number] Patient Condition: [id number] Good HOME CARE INSTRUCTIONS: [id number] Diet Instructions: [id number] FOLLOW UP/APPOINTMENTS Follow-up Plan pcp [address] Moody 1 week LUCIANA MUHAMMAD MD Jan 03, 2019 10:40
--- NOTE | 2019-01-04 08:36 | DS ---
DATE OF ADMISSION: 12/28/2018 DATE OF DISCHARGE: 01/03/2019 DISCHARGE DIAGNOSES: 1. A 58-year-old female with acute kidney injury due to dehydration and vomiting, significantly impr remberto. 2. Status post hemodialysis x1 session. 3. Metabolic acidosis, resolved. 4. Hyperkalemia, resolved. 5. Hypertension. 6. Type 2 diabetes mellitus. 7. Hypothyroidism. 8. Hyperlipidemia. HOSPITAL COURSE: A 58-year-old female with multiple other medical problems presented to emergency ro with complaint of dizziness associated with nausea and vomiting for several days. The patient was diagnosed with acute kidney injury and associated metabolic acidosis. Creatinine was initially as h igh as 11. Her baseline creatinine was 1.15. The patient was seen in consultation by Dr. Garcia. She underwent hemodialysis x1 session. Renal fun ction gradually improved. On day of discharge, her renal function showed BUN of 23 and creatinine of 1.52. I discontinued metformin. The patient was discharged home in stable condition. The patient will follow up with primary care provider and Dr. Anabelle Garcia as outpatient. Dictated By: LUCIANA RIOS/NTS Conf#: [id number] DID#: [id number] CC: ANABELLE GARCIA MD; LUCIANA MUHAMMAD MD;*EndCC*
== END 2019-01-03 11:30 | disposition home or self-care (01) | DRG 683 ==
LOC: EDSEX 09:08 → E/R 09:08 → 6WM 10:46 → EDBEDREQSVC 12:23 → EDBEDREQ 12:23 → CANRESERV 18:22 → EDBEDREQ 18:38 → EDBEDREQSVC 18:38
PROVIDERS: ADMIT Internal Medicine; ATTEND Internal Medicine
PROC: B214YZZ Fluoroscopy of Right Heart using Other Contrast (ICD-10-PCS; 2018-12-28)
PROC: B543ZZA Ultrasonography of Right Jugular Veins, Guidance (ICD-10-PCS; 2018-12-28)
PROC: 4A033R1 Measurement of Arterial Saturation, Peripheral, Percutaneous Approach (ICD-10-PCS; 2018-12-28)
PROC: 5A1D70Z Performance of Urinary Filtration, Intermittent, Less than 6 Hours Per Day (ICD-10-PCS; 2018-12-28)
PROC: 02H633Z Insertion of Infusion Device into Right Atrium, Percutaneous Approach (ICD-10-PCS; principal; 2018-12-28 15:30)
DX: N17.0 Acute kidney failure with tubular necrosis (principal); E87.2 Acidosis; G93.49 Other encephalopathy; I12.9 Hypertensive chronic kidney disease with stage 1 through stage 4 chronic kidney disease, or unspecified chronic kidney disease; N18.3 Chronic kidney disease, stage 3 (moderate); E78.5 Hyperlipidemia, unspecified; D63.1 Anemia in chronic kidney disease; E86.0 Dehydration; E11.22 Type 2 diabetes mellitus with diabetic chronic kidney disease; E78.00 Pure hypercholesterolemia, unspecified; E87.5 Hyperkalemia; E03.9 Hypothyroidism, unspecified; I25.10 Atherosclerotic heart disease of native coronary artery without angina pectoris; E11.21 Type 2 diabetes mellitus with diabetic nephropathy; Z79.4 Long term (current) use of insulin; Z79.82 Long term (current) use of aspirin
CPT/HCPCS: 36600; 70450; 71045; 76775; 76937; 80048; 80053; 80061; 80307; 81001; 81003; 82550; 82570; 82803; 82962; 83036; 83735; 84100; 84132; 84300; 84484; 84560; 85025; 85610; 85730; 86703; 86704; 86709; 86803; 87340; 89190; 90935; 92610; 93005; 94664; 96374; C1752; J1644; J1815; J2150; J2250; J2270; J2405; J3010; J7030; P9047